=== PATIENT | female | born 1935 | race Caucasian/White ===

== ENCOUNTER 2021-06-02 09:43 | Inpatient (IN) ==
--- NOTE | 2021-06-02 10:15 | Emergency Department Note ---
HPI General Chief complaint: Fall Stated complaint: Fall, left femur pain Time Seen by Provider: 06/02/21 10:05 Source: EMS Mode of arrival: EMS Limitations: no limitations History of Present Illness HPI Narrative: Narrative: 86 yo F w/ h/o HTN, Zoster, p/w L hip and thigh pain s/p fall. She reports that she is on gabapentin for her zoster, which makes her dizzy. She stood up from the bed, and felt dizzy c/w previous episodes that she attributes to gabapentin, and then lost her balance, falling to the ground. She had left thigh pain which was constant, w/ no clear alleviating/aggravating factors, and has improved s/p fentanyl given by EMS en route. She reports she she is tired and is having difficulty remembering her exact symptoms. She denies any head injury, headache, numbness, tingling, weakness. Related Data Home Medications Medication Instructions Recorded Confirmed amlodipine 5 mg tablet ea PO 05/23/21 05/30/21 aspirin 81 mg tablet,delayed 81 mg PO QDAY 05/23/21 05/30/21 release (Adult Low Dose Aspirin) azathioprine 50 mg tablet ea PO 05/23/21 05/30/21 duloxetine 30 mg capsule,delayed 30 mg PO cap 05/23/21 05/30/21 release escitalopram oxalate 5 mg tablet 5 mg PO tab 05/23/21 05/30/21 fenofibrate micronized 200 mg cap PO 05/23/21 05/30/21 capsule gabapentin 100 mg capsule 100 mg PO TID cap 05/23/21 05/30/21 gabapentin 300 mg capsule ea PO 05/23/21 05/30/21 lidocaine 5 % topical ointment 1 applic TOPICAL g 05/23/21 05/30/21 lisinopril 40 mg tablet ea PO 05/23/21 05/30/21 metoprolol succinate 25 mg ea PO 05/23/21 05/30/21 tablet,extended release 24 hr rosuvastatin 5 mg tablet tab PO 05/23/21 05/30/21 valacyclovir 1 gram tablet 1,000 mg PO tab 05/23/21 05/30/21 Allergies Allergy/AdvReac Type Severity Reaction Status Date / Time Cyclobenzaprine Allergy Unknown Verified 06/02/21 09:44 [From Flexeril] Review of Systems ROS ROS Narrative: Narrative: All systems ED: reviewed and negative except as stated. PFSH Narrative Patient History Narrative: Narrative: Medical/Surgical/Family History All Active Problems (Updated 06/02/21 @ 18:43 by [place] MD) Acute pain of left hip (Acute) Crohn's disease (Acute) Closed fracture of left hip (Acute) Easy bruising (Chronic) Difficulty in walking (Chronic) Heartburn (Chronic) Visual changes (Chronic) Weight loss (Chronic) Depression (Chronic) Heart disease (Chronic) Glaucoma (Chronic) Zoster without complications (Acute) Benign nevus (Chronic) Seborrheic dermatitis (Chronic) Pain in left knee (Chronic) Thoracic back pain (Chronic) Osteoarthritis (Chronic) Osteopenia (Chronic) Vitamin D deficiency (Chronic) Dumping syndrome (Chronic) Crohn's disease (Chronic) Anxiety (Chronic) Hyperlipemia (Chronic) Palpitations (Chronic) Disorder of bone density and structure, unspecified (Chronic) Skin cancer (Chronic) Angioma (Chronic) Solar elastosis (Chronic) Seborrheic keratoses (Chronic) Hypertension (Chronic) Shingles (Chronic) Flank pain (Chronic) Postherpetic neuralgia (Chronic) Medical History Angioma Anxiety Benign nevus Crohn's disease Depression Difficulty in walking Disorder of bone density and structure, unspecified Dumping syndrome Easy bruising Flank pain Glaucoma Heart disease Heartburn Hyperlipemia Hypertension Osteoarthritis Osteopenia Pain in left knee Palpitations Postherpetic neuralgia Seborrheic dermatitis Seborrheic keratoses Shingles Skin cancer Solar elastosis Thoracic back pain Visual changes Vitamin D deficiency Weight loss Zoster without complications Surgical History History of appendectomy History of cholecystectomy History of coronary artery stent placement History of hysterectomy Family History Brother Lung cancer Unknown Diabetes Hypercholesterolemia Hypothyroidism Mother Arthritis Hypertension Father Heart disease Social History Smoking Status: Never smoker Alcohol Intake Frequency: does not drink Substance Use: does not use Exam Narrative Narrative: Narrative: General Limitations: no limitations General appearance: Present alert, in no apparent distress and other (fatigued) Head Head: Present atraumatic and normocephalic ENT ENT: Present normal oropharynx and mucous membranes moist Chest Chest: Present normal inspection and symmetric chest wall rise Respiratory Respiratory: Present normal lung sounds bilaterally and stridor; Absent respiratory distress, rales/crackles or wheezes Cardiovascular Cardiovascular: Present regular rate, normal rhythm, +S1, +S2 and other (2+ B/L DP, PT, radial pulses); Absent systolic murmur or diastolic murmur Adbominal Abdominal: Present soft and normal bowel sounds; Absent distention or tenderness Extremities Extremities: Present other (LLE foreshortened, externally rotated, TTP over L hip, pain w/ external rotation); Absent pedal edema Neurological Neurological: Present alert and oriented X3 Psychiatric Psychiatric: Present normal affect Skin Skin: Present warm (WNL) and dry Course Vital Signs Vital signs: Vital Signs Temperature 97.8 F 06/02/21 09:44 Pulse Rate 58 L 06/02/21 09:44 Respiratory Rate 16 06/02/21 09:44 Blood Pressure 106/98 06/02/21 09:44 Pulse Oximetry (%) 98 06/02/21 09:44 Temperature 97.8 F 06/02/21 09:44 Pulse Rate 57 L 06/02/21 18:29 Respiratory Rate 16 06/02/21 09:44 Blood Pressure 131/86 06/02/21 17:16 Pulse Oximetry (%) 96 06/02/21 18:29 MDM MDM Narrative Medical decision making narrative: Narrative: 86 yo F w/ h/o HTN, on ASA, p/w L hip pain s/p GLF DDX - Hip Fx, dislocation, neurovascular injury, closed head injury, spinal injury, underlying medical illness Pt presented clinically stable, in NAD. Her Hx and PE were suggestive of a L hip Fx. XR showed a likely impacted Fx to me, but radiology was concerned for some artifact and recommended CT. This did indeed show a Fx. There was no neurovascular injury on exam. Given that she was fairly drowsy s/p fentanyl I ordered CT head and C spine, and these were negative. There was no evidence of an acute medical illness to cause the fall such as syncope, metabolic/electrolyte d/o, etc and further w/u for this was not indicated. I controlled her pain w/ morphine, toradol, and a fascia iliaca block and she was stable for admission to the hospitalist w/ orthopedic surgery consulted and planning operative intervention. Lab Data Result diagrams: 06/02/21 12:18 06/02/21 12:07 Labs: Lab Results 06/02/21 06/02/21 06/02/21 Range/Units 12:07 12:18 12:30 WBC 11.1 H (4.5-11.0) K/mcL RBC 4.07 (3.59-5.38) M/mcL Hgb 13.3 (11.2-15.7) g/dL Hct 40.1 (34.1-44.9) % MCV 98.5 (80.0-100.0) fL MCH 32.7 (26.0-34.0) pg MCHC 33.2 (31.0-36.0) g/dL RDW 14.6 H (11.5-14.5) % Plt Count 234 (140-440) K/mcL MPV 9.3 (7.4-10.4) fL Neut % (Auto) 86.9 H (38.0-78.0) % Lymph % (Auto) 5.2 L (15.5-49.0) % [place] % (Auto) 7.8 (1.0-12.0) % Eos % (Auto) 0 (0.0-7.0) % Baso % (Auto) 0.1 (0.0-2.0) % Lymph # (Auto) 0.58 L (1.50-4.80) K/mcL [place] # (Auto) 0.87 (0.10-0.90) K/mcL Eos # (Auto) 0 (0.00-0.70) K/mcL Baso # (Auto) 0.01 (0.00-0.30) K/mcL Absolute Neutrophils 9.65 H (1.80-8.00) K/mcL PT 13.2 (11.9-14.5) sec INR 1.0 (0.9-1.1) Sodium 135 (133-145) mmol/L Potassium 5.1 (3.3-5.1) mmol/L Chloride 104 (96-108) mmol/L Carbon Dioxide 20 L (22-30) mmol/L Anion Gap 11.0 (8.0-16.0) BUN 25 H (8-23) mg/dL Creatinine 0.8 (0.6-1.1) mg/dL GFR Calculation 68 Glucose 83 (70-105) mg/dL Calcium 8.9 (8.6-10.4) mg/dL Total Bilirubin 0.5 (0.1-1.0) mg/dL AST 18 (<32) U/L ALT 10 (<40) U/L Alkaline Phosphatase 42 (39-117) U/L Total Protein 5.9 (5.9-8.4) gm/dL Albumin 3.4 (3.2-5.2) gm/dL Globulin 2.5 (2.2-3.7) gm/dL Albumin/Globulin Ratio 1.4 (1.0-2.3) ED POC Tests ED POC Tests: SUNG - SARS Antigen Negative EKG Data EKG #1: EKG attestation: Yes I reviewed and interpreted this EKG. and Yes There are no EKG findings of acute coronary syndrome EKG results narrative: Sinus rate of 57, normal HI, QRS, QT/QTc intervals, no STEMI, no previous for comparison. EKG shows normal: sinus rhythm Procedures Nerve Block Nerve Block 1: Consent Obtained: verbal consent Local Anesthetic: bupivacaine 0.25% Amount of anesthesia used (mL): 20 Side: left Nerve Blocks: femoral Procedure Successful: Yes Patient Tolerated Procedure: well Complications: none Additional Comments: I obtained verbal consent after reviewing R/B/A. I identified the femoral nerve using ultrasound prior to procedure. I then prepped w/ a chloraprep and used sterile gloves through the procedure. With a sterile cover on the ultrasound, I introduced a 20 guage spinal needle just lateral to the femoral nerve. I then injected saline and noted fluid surrounding the nerve. Keeping the needle in place, I removed the syringe of saline and attached a 20ml syringe filled w/ 0.25% bupivicaine. Prior to injecting I aspirated to ensure that there was no intravascular placement. I repeated this every 5ml. I injected the 20ml w/o issue. It should be noted that I calculated a maximum dose of 39ml of 0.25% bupivacaine prior to procedure. Discharge Plan Patient/Caregiver Discharge Instructions Pt seen by PARTY HOST/PA only: No Clinical Impression: Acute pain of left hip, Crohn's disease, Closed fracture of left hip Patient Disposition: Xfer As Inpt ([facility]) Condition: Good Follow up with: Hannah Oleary ARNP [Primary Care Provider] - Prescriptions: No Action duloxetine 30 mg capsule,delayed release(DR/EC) 30 mg PO 0RF gabapentin 300 mg capsule PO 0RF Label Comments: take 1 capsule by mouth three times a day NEEDED FOR PAIN lisinopril 40 mg tablet PO 0RF Label Comments: take 1 tablet by mouth once daily metoprolol succinate 25 mg tablet extended release 24 hr PO 0RF Label Comments: take 1 tablet by mouth twice a day (NEEDS TO BE SEEN) escitalopram oxalate 5 mg tablet 5 mg PO 0RF rosuvastatin 5 mg tablet PO 0RF fenofibrate micronized 200 mg capsule PO 0RF amlodipine 5 mg tablet PO 0RF Label Comments: take 1 tablet by mouth once daily gabapentin 100 mg capsule 100 mg PO TID 0RF Label Comments: take 1 capsule by mouth three times a day lidocaine 5 % ointment 1 applic topical 0RF Label Comments: APPLY LIBERALLY TO AFECTED AREA EVERY 4 HOURS IF NEEDED FOR PAIN valacyclovir 1 gram tablet 1,000 mg PO 0RF Label Comments: take 1 tablet by mouth three times a day azathioprine 50 mg tablet PO 0RF Label Comments: take 1 tablet by mouth twice a day after meals aspirin [Adult Low Dose Aspirin] 81 mg tablet,delayed release (DR/EC) 81 mg PO QDAY 0RF
--- NOTE | 2021-06-02 10:57 | XRay Report ---
INDICATION: Hip Fracture TECHNIQUE: AP supine chest x-ray COMPARISON: Previous chest x-rays dated 10/16/2017, 06/16/2016, 02/09/2016 FINDINGS: Lungs:Lungs are suboptimally evaluated, probably due to shallow inspiration and supine position. Follow-up PA and lateral chest x-ray recommended when clinically appropriate. No focal pulmonary parenchymal consolidation or mass Heart, vascular:No significant cardiomegaly. Pulmonary vascularity is normal. No pulmonary edema or pulmonary congestion. There is a probable coronary artery stent in place Mediastinum, jose:No mediastinal widening. No hilar mass Pleura:No pleural fluid. No pleural-based mass or calcification Skeletal:Negative. IMPRESSION: 1. Suboptimal evaluation as above. Recommend follow-up PA and lateral chest x-ray when clinically appropriate 2. No acute abnormality Interpreted and Authenticated by: Rashaun Knowles 06/02/21
--- NOTE | 2021-06-02 11:05 | Cat Scan Report ---
INDICATION: fall COMPARISON: None. TECHNIQUE: Axial noncontrast-enhanced images through the brain. Sagittally and coronally reformatted images. FINDINGS: Cerebral hemispheres:Negative. No acute intra-axial abnormality. No intra-axial hematoma. No localized mass effect. Probable left choroidal fissure cyst. There is white matter abnormality consistent with small vessel ischemic change.There is cerebral atrophy with enlarged superficial subarachnoid spaces and ventricles. Brainstem and cerebellum:No intra-axial abnormality Extra-axial:No acute hemorrhage. No subdural or epidural hematoma. No subarachnoid hemorrhage. Basilar cisterns are normal Calvarial:No calvarial fracture. No lytic lesion Temporal bones are negative. No destructive lesions Soft tissue, orbits, sinuses:Mild inflammatory disease in the sphenoid air cells. IMPRESSION: 1. No acute abnormality. No intracranial hemorrhage 2. Cerebral atrophy and mild white matter abnormality The exam was performed using radiation dose optimization techniques including, but not limited to, automated exposure control, adjustment of the mA and/or kV according to patient size and use of iterative reconstruction technique. Interpreted and Authenticated by: Rashaun Knowles 06/02/21
--- NOTE | 2021-06-02 11:09 | Cat Scan Report ---
INDICATION: fall COMPARISON: None. TECHNIQUE: Axial thin section images through the cervical spine. Sagittally and coronally reformatted images. The exam was performed using radiation dose optimization techniques including, but not limited to, automated exposure control, adjustment of the mA and/or kV according to patient size and use of iterative reconstruction technique. FINDINGS: Vertebral bodies, spinous processes:No vertebral body or spinous process fracture. No acute abnormality. Alignment is anatomic without anterolisthesis Normal odontoid process. No fracture. Occipital condyles and C1 are negative. No atlantoaxial subluxation. Facets:No perched or locked facet. No facet complex fracture. Disc spaces:Moderate degenerative disc narrowing at C4-5 and C5-6 Temporal bones:Negative. No basilar skull fracture Cervical soft tissues:Negative. No prevertebral soft tissue swelling. No focal soft tissue mass or acute abnormality Lung apices:Groundglass infiltrate in the left upper lobe. This is nonspecific but correlation with covid test is recommended. There is an enlarged left thyroid lobe. A discrete nodule was not identified. Follow-up ultrasound recommended IMPRESSION: 1. No cervical spine fracture 2. Degenerative disc disease 3. Groundglass infiltrate in the left upper lobe. Correlation with patient's covid test recommended to exclude covid pneumonia 4. Asymmetric enlargement of the left thyroid lobe. Thyroid ultrasound recommended Interpreted and Authenticated by: Rashaun Knowles 06/02/21
[2021-06-02] MEDS ORDERED: KETOROLAC 15 MG/ML VIAL IV ONE (11:13)
--- NOTE | 2021-06-02 11:13 | XRay Report ---
INDICATION: L hip pain s/p fall TECHNIQUE: AP pelvis. AP and bilateral lateral hips COMPARISON: None. FINDINGS: Negative pelvis. No pelvic fracture. No lytic lesion. Sacrum is negative. Right hip is negative. No right hip fracture. Joint space is mildly narrowed Left hip is internally rotated in the left femoral neck is foreshortened and not well visualized. Definite fracture is not identified but if fracture is suspected clinically CT scan is recommended. IMPRESSION: 1. Suboptimal visualization of the left femoral neck. Left hip fracture is not excluded 2. Otherwise negative Interpreted and Authenticated by: Rashaun Knowles 06/02/21
[2021-06-02] MEDS ORDERED: KETOROLAC 30 MG/ML VIAL IV ONE (11:18)
--- NOTE | 2021-06-02 11:48 | Cat Scan Report ---
INDICATION: L hip pain, likely Fx TECHNIQUE: Axial images through the pelvis and hips. Sagittal and coronal reformatted images COMPARISON: Plain film examination dated 06/02/2021 FINDINGS: Displaced left subcapital hip fracture with anterior displacement and angulation of the femoral neck relative to the head. Left acetabulum is normal. No pelvic fracture. Right hip is negative IMPRESSION: Displaced and angulated subcapital left hip fracture Interpreted and Authenticated by: Rashaun Knowles 06/02/21
[2021-06-02] MEDS ORDERED: BUPIVACAINE 0.25% 50 ML VIAL IJ ONE (13:12)
[2021-06-02 13:17] LABS: Basophils # (Auto) 0.01 K/mcL (0.00-0.30); Basophils % (Auto) 0.1 % (0.0-2.0); Eosinophils # (Auto) 0 K/mcL (0.00-0.70); Eosinophils % (Auto) 0 % (0.0-7.0); Hematocrit 40.1 % (34.1-44.9); Hemoglobin 13.3 g/dL (11.2-15.7); Lymphocytes # (Auto) 0.58 K/mcL (1.50-4.80); Lymphocytes % (Auto) 5.2 % (15.5-49.0); Mean Cell Volume 98.5 fL (80.0-100.0); Mean Corpuscular HGB Conc 33.2 g/dL (31.0-36.0); Mean Platelet Volume 9.3 fL (7.4-10.4); Monocytes # (Auto) 0.87 K/mcL (0.10-0.90); Monocytes % (Auto) 7.8 % (1.0-12.0); Neutrophils % (Auto) 86.9 % (38.0-78.0); Platelet Count 234 K/mcL (140-440); RBC 4.07 M/mcL (3.59-5.38); Red Cell Distribution Width 14.6 % (11.5-14.5); WBC 11.1 K/mcL (4.5-11.0)
[2021-06-02 13:25] LABS: Prothrombin Time 13.2 sec (11.9-14.5)
[2021-06-02 13:27] LABS: ALT/SGPT 10 U/L (<40); AST/SGOT 18 U/L (<32); Albumin 3.4 gm/dL (3.2-5.2); Albumin/Globulin Ratio 1.4 (1.0-2.3); Alkaline Phosphatase 42 U/L (39-117); Bilirubin,Total 0.5 mg/dL (0.1-1.0); Blood Urea Nitrogen 25 mg/dL (8-23); Calcium 8.9 mg/dL (8.6-10.4); Carbon Dioxide 20 mmol/L (22-30); Chloride 104 mmol/L (96-108); Globulin 2.5 gm/dL (2.2-3.7); Glomerular Filtration Rate 68; Glucose 83 mg/dL (70-105)
[2021-06-02] MEDS ORDERED: morphine 4 MG/ML VIAL IV ONE (13:44)
[2021-06-02] MEDS ORDERED: ONDANSETRON 4 MG/2 ML VIAL IV ONE (13:44)
--- NOTE | 2021-06-02 17:16 | Internal Med History&Physical ---
HPI History of Present Illness Patient information: Note initiated : 06/02/21 at 5:11 pm Service Date, if different from initiated Date: [] Patient: Katheryn Hendrickson a 86 y/o F admitted on for Fall, left femur pain. Chief Complaint: [] History of present illness: Ms. Hendrickson is a 86 year old F Patient fell onto left hip resulting in fracture. She has shingles left back area. She is on gabapentin. Patient states the medication has made her dizzy as time which caused her to fall today. Vicki was contacted for orthopedics. Patient denies chest pain shortness of breath did not hit her head. Review of Systems: Positives as above. Denies headache/fever/chills/nausea/vomiting/chest or abdominal pain/cough/dyspnea/diarrhea. Remaining 10 point review of system reviewed negative PFSH PFSH All Active Problems Easy bruising (Chronic) Difficulty in walking (Chronic) Heartburn (Chronic) Visual changes (Chronic) Weight loss (Chronic) Depression (Chronic) Heart disease (Chronic) Glaucoma (Chronic) Zoster without complications (Acute) Benign nevus (Chronic) Seborrheic dermatitis (Chronic) Pain in left knee (Chronic) Thoracic back pain (Chronic) Osteoarthritis (Chronic) Osteopenia (Chronic) Vitamin D deficiency (Chronic) Dumping syndrome (Chronic) Crohn's disease (Chronic) Anxiety (Chronic) Hyperlipemia (Chronic) Palpitations (Chronic) Disorder of bone density and structure, unspecified (Chronic) Skin cancer (Chronic) Angioma (Chronic) Solar elastosis (Chronic) Seborrheic keratoses (Chronic) Hypertension (Chronic) Shingles (Chronic) Flank pain (Chronic) Postherpetic neuralgia (Chronic) Medical History Angioma Anxiety Benign nevus Crohn's disease Depression Difficulty in walking Disorder of bone density and structure, unspecified Dumping syndrome Easy bruising Flank pain Glaucoma Heart disease Heartburn Hyperlipemia Hypertension Osteoarthritis Osteopenia Pain in left knee Palpitations Postherpetic neuralgia Seborrheic dermatitis Seborrheic keratoses Shingles Skin cancer Solar elastosis Thoracic back pain Visual changes Vitamin D deficiency Weight loss Zoster without complications Surgical History History of appendectomy History of cholecystectomy History of coronary artery stent placement History of hysterectomy Family History Brother Lung cancer Unknown Diabetes Hypercholesterolemia Hypothyroidism Mother Arthritis Hypertension Father Heart disease Social History (Updated 05/24/21 @ 15:44 by Agueda Adams) marital status: education level: college occupational status: retired physical activity: other frequency: 3-4 times per week smoking status: Never smoker alcohol intake frequency: does not drink substance use type: does not use MEDS/ALLERGIES Home Medications and Allergies Home Medications Medication Instructions Recorded Confirmed Type amlodipine 5 mg tablet ea PO 05/23/21 05/30/21 History aspirin 81 mg tablet,delayed 81 mg PO QDAY 05/23/21 05/30/21 History release (Adult Low Dose Aspirin) azathioprine 50 mg tablet ea PO 05/23/21 05/30/21 History duloxetine 30 mg capsule,delayed 30 mg PO cap 05/23/21 05/30/21 History release escitalopram oxalate 5 mg tablet 5 mg PO tab 05/23/21 05/30/21 History fenofibrate micronized 200 mg cap PO 05/23/21 05/30/21 History capsule gabapentin 100 mg capsule 100 mg PO TID cap 05/23/21 05/30/21 History gabapentin 300 mg capsule ea PO 05/23/21 05/30/21 History lidocaine 5 % topical ointment 1 applic TOPICAL g 05/23/21 05/30/21 History lisinopril 40 mg tablet ea PO 05/23/21 05/30/21 History metoprolol succinate 25 mg ea PO 05/23/21 05/30/21 History tablet,extended release 24 hr rosuvastatin 5 mg tablet tab PO 05/23/21 05/30/21 History valacyclovir 1 gram tablet 1,000 mg PO tab 05/23/21 05/30/21 History Allergies Allergy/AdvReac Type Severity Reaction Status Date / Time Cyclobenzaprine Allergy Unknown Verified 06/02/21 09:44 [From Flexeril] EXAM Constitutional Vitals: Temp Pulse Resp BP Pulse Ox 97.8 F 57 L 16 139/70 96 06/02/21 09:44 06/02/21 16:46 06/02/21 09:44 06/02/21 16:46 06/02/21 16:46 Exam: General: Alert, Awake, No acute Distress Eyes/N/T: EOMI, PERRL, dry MM Head/Neck: neck supple, normocephalic atraumatic CV: RRR, No murmurs, normal s1/s2 Pulm: Clear b/l, no wheezing/rhonchi/rales Abd: soft, nontender, +BS x4 Ext: no clubbing/cyanosis/edema Neuro: Alert, no focal deficits, moves all extremities, CN 2-12 grossly intact, sensations intact b/l upper/lower Skin: warm/dry DATA Data Completed and Pending Labs: Labs from last 24 hours 06/02/21 06/02/21 06/02/21 12:30 12:18 12:07 WBC 11.1 H RBC 4.07 Hgb 13.3 Hct 40.1 MCV 98.5 MCH 32.7 MCHC 33.2 RDW 14.6 H Plt Count 234 MPV 9.3 Neut % (Auto) 86.9 H Lymph % (Auto) 5.2 L [place] % (Auto) 7.8 Eos % (Auto) 0 Baso % (Auto) 0.1 Lymph # (Auto) 0.58 L [place] # (Auto) 0.87 Eos # (Auto) 0 Baso # (Auto) 0.01 Absolute Neutrophils 9.65 H PT 13.2 INR 1.0 Sodium 135 Potassium 5.1 Chloride 104 Carbon Dioxide 20 L Anion Gap 11.0 BUN 25 H Creatinine 0.8 GFR Calculation 68 Glucose 83 Calcium 8.9 Total Bilirubin 0.5 AST 18 ALT 10 Alkaline Phosphatase 42 Total Protein 5.9 Albumin 3.4 Globulin 2.5 Albumin/Globulin Ratio 1.4 A/P Narrative A/P Narrative: A: *Left hip fracture: *recent Zoster infection to Left back (thoracic): recently started on gabapentin, increased cymbalta, lidoderm *h/o CAD w/stent: *HTN/HLD: *Crohn's: On azathioprine *Anxiety/depression: * P: -Dr. Cohen for orthopedic surgery -Hold aspirin until surgery -pt/ot -cont norvasc/ACEI, hold BB for mild BB -Reconcile home medications -ppx: SCD, post op per ortho DNR Time Spent With Patient Time: Total time spent is greater than 50% in coordination of care (as documented) at patient's floor/unit and/or counseling patient:
[2021-06-02] MEDS ORDERED: ceFAZolin 2 GM in DEXTROSE 5% IN WATER 50 ML IV SCH (19:30)
[2021-06-02] MEDS ORDERED: ceFAZolin 1 GM VIAL ONE (19:33)
--- NOTE | 2021-06-02 19:38 | Orthopedic History & Physical ---
HPI History of Present Illness Patient information: Note initiated : 06/02/21 at 7:29 pm Service Date, if different from initiated Date: [] Patient: Katheryn Hendrickson 86 y/o F admitted on for Fall, left femur pain. Chief Complaint: [left hip pain s/p fall] History of present illness: 86 yo F w/ h/o HTN, Zoster, p/w L hip and thigh pain s/p fall. She reports that she is on gabapentin for her zoster, which makes her dizzy. She stood up from the bed, and felt dizzy c/w previous episodes that she attributes to gabapentin, and then lost her balance, falling to the ground. Sh ewas subsequently transported to [facility] where workup revealed LEFT subcapital femur fracture. She denies any head injury, headache, numbness, tingling, weakness. Dr. Cohen ortho surgeon was consulted for treatment. Review of Systems All systems: reviewed and no additional remarkable complaints except as stated PFSH PFSH All Active Problems Acute pain of left hip (Acute) Crohn's disease (Acute) Closed fracture of left hip (Acute) Easy bruising (Chronic) Difficulty in walking (Chronic) Heartburn (Chronic) Visual changes (Chronic) Weight loss (Chronic) Depression (Chronic) Heart disease (Chronic) Glaucoma (Chronic) Zoster without complications (Acute) Benign nevus (Chronic) Seborrheic dermatitis (Chronic) Pain in left knee (Chronic) Thoracic back pain (Chronic) Osteoarthritis (Chronic) Osteopenia (Chronic) Vitamin D deficiency (Chronic) Dumping syndrome (Chronic) Crohn's disease (Chronic) Anxiety (Chronic) Hyperlipemia (Chronic) Palpitations (Chronic) Disorder of bone density and structure, unspecified (Chronic) Skin cancer (Chronic) Angioma (Chronic) Solar elastosis (Chronic) Seborrheic keratoses (Chronic) Hypertension (Chronic) Shingles (Chronic) Flank pain (Chronic) Postherpetic neuralgia (Chronic) Medical History Angioma Anxiety Benign nevus Crohn's disease Depression Difficulty in walking Disorder of bone density and structure, unspecified Dumping syndrome Easy bruising Flank pain Glaucoma Heart disease Heartburn Hyperlipemia Hypertension Osteoarthritis Osteopenia Pain in left knee Palpitations Postherpetic neuralgia Seborrheic dermatitis Seborrheic keratoses Shingles Skin cancer Solar elastosis Thoracic back pain Visual changes Vitamin D deficiency Weight loss Zoster without complications Surgical History History of appendectomy History of cholecystectomy History of coronary artery stent placement History of hysterectomy Family History Brother Lung cancer Unknown Diabetes Hypercholesterolemia Hypothyroidism Mother Arthritis Hypertension Father Heart disease Social History marital status: education level: college occupational status: retired physical activity: other frequency: 3-4 times per week smoking status: Never smoker alcohol intake frequency: does not drink substance use type: does not use MEDS/ALLERGIES Home Medications and Allergies Home Medications Medication Instructions Recorded Confirmed Type amlodipine 5 mg tablet ea PO 05/23/21 05/30/21 History aspirin 81 mg tablet,delayed 81 mg PO QDAY 05/23/21 05/30/21 History release (Adult Low Dose Aspirin) azathioprine 50 mg tablet ea PO 05/23/21 05/30/21 History duloxetine 30 mg capsule,delayed 30 mg PO cap 05/23/21 05/30/21 History release escitalopram oxalate 5 mg tablet 5 mg PO tab 05/23/21 05/30/21 History fenofibrate micronized 200 mg cap PO 05/23/21 05/30/21 History capsule gabapentin 100 mg capsule 100 mg PO TID cap 05/23/21 05/30/21 History gabapentin 300 mg capsule ea PO 05/23/21 05/30/21 History lidocaine 5 % topical ointment 1 applic TOPICAL g 05/23/21 05/30/21 History lisinopril 40 mg tablet ea PO 05/23/21 05/30/21 History metoprolol succinate 25 mg ea PO 05/23/21 05/30/21 History tablet,extended release 24 hr rosuvastatin 5 mg tablet tab PO 05/23/21 05/30/21 History valacyclovir 1 gram tablet 1,000 mg PO tab 05/23/21 05/30/21 History Allergies Allergy/AdvReac Type Severity Reaction Status Date / Time Cyclobenzaprine Allergy Unknown Verified 06/02/21 09:44 [From Flexeril] Physical Examination Narrative Narrative: Narrative: Results Labs Result Diagrams: 06/02/21 12:18 06/02/21 12:07 Labs: Abnormal lab results 06/02/21 06/02/21 Range/Units 12:07 12:18 WBC 11.1 H (4.5-11.0) K/mcL RDW 14.6 H (11.5-14.5) % Neut % (Auto) 86.9 H (38.0-78.0) % Lymph % (Auto) 5.2 L (15.5-49.0) % Lymph # (Auto) 0.58 L (1.50-4.80) K/mcL Absolute Neutrophils 9.65 H (1.80-8.00) K/mcL Carbon Dioxide 20 L (22-30) mmol/L BUN 25 H (8-23) mg/dL H & H 06/02/21 Range/Units 12:18 Hgb 13.3 (11.2-15.7) g/dL Hct 40.1 (34.1-44.9) % Coagulation 06/02/21 Range/Units 12:30 INR 1.0 (0.9-1.1) All other labs normal. A/P Narrative A/P Narrative: On exam pt is at bedrest in no acute distress, heart is normal rhythm lungs are equal and clear bilaterally. She is able to move all four extremities which are warm, well perfused and neuro intact. At the Left hip and pelvis there is tenderness to palpation and with any ROM. Options were presented to the patient including surgical and non surgical. surgical option consisting of left hip hemiarthoplasty. At this time patient is interested in surgery. Plan is for left hip hemiarthroplasty to take place semi urgently with Vicki Alanis surgeon and Amos CURIEL. Surgical risks were explained to the patient including but not limited to: pain, bleeding, infection, need for further surgery, stroke, heart attack, and . patient understands these risks and wishes to proceed with surgery Time Spent With Patient Time: Total time spent is greater than 50% in coordination of care (as documented) at patient's floor/unit and/or counseling patient:
[2021-06-02] MEDS ORDERED: ONDANSETRON 4 MG/2 ML VIAL ONE (19:42)
[2021-06-02] MEDS ORDERED: KETAMINE 50 MG/ML Syringe (ANEST) IV ONE (19:42)
[2021-06-02] MEDS ORDERED: TRANEXAMIC ACID 1,000 MG/10 ML VIAL ONE (19:42)
[2021-06-02] MEDS ORDERED: LIDOCAINE HCL/PF 100 MG/5 ML SYRINGE IV ONE (19:42)
[2021-06-02] MEDS ORDERED: PHENYLephrine 1 MG/10 ML SYRINGE (ANEST) ONE (19:42)
[2021-06-02] MEDS ORDERED: fentaNYL 100 MCG/2 ML VIAL IV ONE (19:42)
[2021-06-02] MEDS ORDERED: DEXAMETHASONE 10 MG/ML VIAL ONE (19:42)
[2021-06-02] MEDS ORDERED: PROPOFOL 200 MG/20 ML VIAL IV ONE (19:42)
[2021-06-02] MEDS ORDERED: MAGNESIUM SULFATE 2 GM/50 ML BAG IV ONE (19:42)
[2021-06-02] MEDS ORDERED: GLYCOPYRROLATE 0.2 MG/ML VIAL IV ONE (19:42)
[2021-06-02] MEDS ORDERED: GENTAMICIN SULFATE 800 MG/20 ML VIAL IR ONE (20:54)
--- NOTE | 2021-06-02 21:18 | General Surgery Procedure Note ---
Date of procedure: Note initiated : 06/02/21 at 9:17 pm Service Date, if different from initiated Date: [] Pre-op diagnosis: left hip femoral neck fracture Post-op diagnosis: same Procedure: left hip hemiarthroplasty Anesthesia: DAQUAN Surgeon: Rashaun Cohen Leasing Consultant: Marco Antonio Ambriz Estimated blood loss: 150 Pathology: none sent Condition: stable Disposition: PACU
--- NOTE | 2021-06-02 21:18 | Discharge Plan ---
DC Instructions-General Patient Instructions Dressing Care: May shower in 2 days Discharge Plan Patient/Caregiver Discharge Instructions Activity: ambulate only with your walker and as per physical therapy Diet: Regular Diet Prescriptions: New aspirin [Aspirin Low Dose] 81 mg Tablet,Delayed Release (Dr/Ec) 81 mg PO BID Qty: 30 0RF hydrocodone-acetaminophen 10-325 mg Tablet 1 - 2 tab PO Q4H PRN (Reason: Pain) Qty: 60 0RF No Action duloxetine 30 mg capsule,delayed release(DR/EC) 30 mg PO 0RF gabapentin 300 mg capsule PO 0RF Label Comments: take 1 capsule by mouth three times a day NEEDED FOR PAIN lisinopril 40 mg tablet PO 0RF Label Comments: take 1 tablet by mouth once daily metoprolol succinate 25 mg tablet extended release 24 hr PO 0RF Label Comments: take 1 tablet by mouth twice a day (NEEDS TO BE SEEN) escitalopram oxalate 5 mg tablet 5 mg PO 0RF rosuvastatin 5 mg tablet PO 0RF fenofibrate micronized 200 mg capsule PO 0RF amlodipine 5 mg tablet PO 0RF Label Comments: take 1 tablet by mouth once daily gabapentin 100 mg capsule 100 mg PO TID 0RF Label Comments: take 1 capsule by mouth three times a day lidocaine 5 % ointment 1 applic topical 0RF Label Comments: APPLY LIBERALLY TO AFECTED AREA EVERY 4 HOURS IF NEEDED FOR PAIN valacyclovir 1 gram tablet 1,000 mg PO 0RF Label Comments: take 1 tablet by mouth three times a day azathioprine 50 mg tablet PO 0RF Label Comments: take 1 tablet by mouth twice a day after meals aspirin [Adult Low Dose Aspirin] 81 mg tablet,delayed release (DR/EC) 81 mg PO QDAY 0RF Other Ambulatory Orders: OT Discharge Order (Routine) Location: None Selected Ordered By: Rashaun Cohen Physical Therapy DC - General (Routine) Location: None Selected Ordered By: Rashaun Cohen Follow Up Plan Follow up with: Rashaun Cohen MD [Physician] - Hannah Oleary ARNP [Primary Care Provider] - Patient Disposition: Xfer SNF Prognosis: Good Rehab Potential: Good I certify that the patient requires SNF services: Yes Overall status at discharge: patient is progressing back to baseline Discharge Orders: Discharge Order (Routine); Ordered 06/04/21 Ordered By: Rashaun Cohen
[2021-06-02] MEDS ORDERED: BISACODYL 10 MG SUPP.RECT PR PRN (21:19)
[2021-06-02] MEDS ORDERED: ONDANSETRON 4 MG ODT TABLET SL PRN (21:19)
[2021-06-02] MEDS ORDERED: POLYETHYLENE GLYCOL 3350 17 GM PACKET PO PRN ×2 (21:19→22:26)
[2021-06-02] MEDS ORDERED: BENZOCAINE/MENTHOL 1 LOZENGE PO PRN ×2 (21:19→21:37)
[2021-06-02] MEDS ORDERED: MAGNESIUM HYDROXIDE 30 ML ORAL.SUSP PO PRN (21:19)
[2021-06-02] MEDS ORDERED: morphine 4 MG/ML VIAL IV PRN ×2 (21:19→22:26)
[2021-06-02] MEDS ORDERED: FLEETS ADULT ENEMA PR PRN (21:19)
[2021-06-02] MEDS ORDERED: FLUMAZENIL 0.1 MG/ML ML IV PRN (21:37)
[2021-06-02] MEDS ORDERED: NALOXONE HCL 0.4 MG/ML VIAL IV PRN (21:37)
[2021-06-02] MEDS ORDERED: METOPROLOL TARTRATE 5 MG/5 ML VIAL IV PRN (21:37)
[2021-06-02] MEDS ORDERED: fentaNYL 100 MCG/2 ML VIAL IV PRN (21:37)
[2021-06-02] MEDS ORDERED: METHOCARBAMOL 1,000 MG/10 ML VIAL IV PRN (21:37)
[2021-06-02] MEDS ORDERED: LABETALOL 5 MG/ML ML IV PRN (21:37)
[2021-06-02] MEDS ORDERED: ACETAMINOPHEN 1,000 MG/100 ML BAG IV ONE (21:37)
[2021-06-02] MEDS ORDERED: LACTATED RINGERS 250 ML IV PRN (21:37)
[2021-06-02] MEDS ORDERED: IPRATROPIUM/ALBUTEROL 3 ML AMPUL.NEB NEB PRN ×2 (21:37→22:26)
[2021-06-02] MEDS ORDERED: ONDANSETRON 4 MG/2 ML VIAL IV PRN ×2 (21:37→22:26)
[2021-06-02] MEDS ORDERED: LACTATED RINGERS 1,000 ML IV SCH (21:45)
[2021-06-02] MEDS ORDERED: ACETAMINOPHEN 750 MG/75 ML BAG IV ONE (22:00)
[2021-06-02] MEDS ORDERED: HYDROcodone/APAP 5/325MG TABLET PO PRN (22:26)
[2021-06-02] MEDS ORDERED: POTASSIUM CHLORIDE 40 MEQ in DEXTROSE 5% IN WATER 500 ML IV PRN (22:26)
[2021-06-02] MEDS ORDERED: MAGNESIUM SULFATE 2 GM/50 ML BAG IV PRN (22:26)
[2021-06-02] MEDS ORDERED: DOCUSATE SODIUM 100 MG CAPSULE PO SCH (22:26)
[2021-06-02] MEDS ORDERED: SENNOSIDES 1 TABLET PO PRN (22:26)
[2021-06-02] MEDS ORDERED: POTASSIUM CHLORIDE 20 MEQ TABLET PO PRN ×2 (22:26)
[2021-06-02] MEDS ORDERED: hydrALAZINE 20 MG/ML VIAL IV PRN (22:26)
[2021-06-02] MEDS: LACTATED RINGERS 1,000 ML IV SCH (22:56)
[2021-06-03] MEDS: 0.9 % SODIUM CHLORIDE 10 ML SYRINGE IV SCH ×4 (01:51→21:33)
[2021-06-03] MEDS: ceFAZolin 1 GM VIAL IV SCH ×2 (04:01→11:54)
--- NOTE | 2021-06-03 06:12 | XRay Report ---
INDICATION: surgery TECHNIQUE: AP pelvis. AP and crosstable lateral left hip COMPARISON: Preoperative CT scan dated 06/02/2021 FINDINGS: Status post left hemihip arthroplasty. Alignment is anatomic. There is postsurgical gas present and there are skin deondre overlying the left hip. Pelvis is negative. No acute fracture. Sacrum is negative IMPRESSION: Status post left hemihip arthroplasty Interpreted and Authenticated by: Rashaun Knowles 06/03/21
[2021-06-03] MEDS: 0.9 % SODIUM CHLORIDE 1,000 ML IV SCH ×2 (06:27→11:29)
[2021-06-03] MEDS: LACTATED RINGERS 1,000 ML IV SCH ×4 (06:32→19:59)
--- NOTE | 2021-06-03 07:12 | Orthopedic Progress Note ---
SUBJECTIVE Subjective Patient information: Note initiated : 06/03/21 at 7:08 am Service Date, if different from initiated Date: [] Patient: Katheryn Hendrickson 86 y/o F admitted on 06/02/21 for Fall, left femur pain. Chief Complaint: [s/p left hemiarthroplasty ] Pertinent ROS: 10 point review performed and is negative except where mentioned Constitutional Vitals: Vital Signs Temp Pulse Resp BP Pulse Ox 97.3 F 68 16 102/59 91 06/03/21 06:56 06/03/21 06:56 06/03/21 06:56 06/03/21 06:56 06/03/21 06:56 Period Temp Pulse Resp BP Sys/Rivera Pulse Ox Last 24 Hr 97.1 F-97.8 F 52-101 9-22 86-165/59-137 91-100 Intake and Output 06/02/21 06/03/21 06/03/21 21:59 05:59 13:59 Intake Total 1550 100 Output Total 475 450 Balance 1075 -350 Weight 109 lb Intake & Output: Intake & Output 06/02/21 06/03/21 06/03/21 21:59 05:59 13:59 Intake Total 1550 100 Output Total 475 450 Balance 1075 -350 Weight 109 lb Intake: IV 50 100 Ancef 2 gm In Dextrose 5% in 50 Water 50 ml @ 100 mls/hr IV PREOP [facility] Rx#:[id number] IV - Manual Only 1500 Output: Urine Catheter Amount 400 450 Estimated Blood Loss 75 Other: Urine Appearance Clear Clear Uretheral (Parsons) Clear Urine Color Bright Yellow Straw Uretheral (Parsons) Bright Yellow OBJ DATA Labs CBC & Chem 7: 06/02/21 12:18 06/02/21 12:07 Labs: Abnormal Lab Results 06/02/21 06/02/21 12:18 12:07 WBC 11.1 H RDW 14.6 H Neut % (Auto) 86.9 H Lymph % (Auto) 5.2 L Lymph # (Auto) 0.58 L Absolute Neutrophils 9.65 H Carbon Dioxide 20 L BUN 25 H Meds: Medications Acetaminophen (Acetaminophen 325 Mg Tablet) 650 mg PO Q6HP PRN; Protocol PRN Reason: Per Pain Protocol/Fever > 101 Hydrocodone Bitart/Acetaminophen (Hydrocodone/Apap 10/325mg Tablet) 0 tab PO Q4HP PRN; Protocol PRN Reason: Per Pain Protocol Hydrocodone Bitart/Acetaminophen (Hydrocodone/Apap 5/325mg Tablet) 1 tab PO Q4HP PRN PRN Reason: PAIN LEVEL 3-6 Albuterol/Ipratropium (Ipratropium/Albuterol 3 Ml Ampul.Neb) 3 ml NEB Q4HP PRN PRN Reason: Shortness Of Breath Aspirin (Aspirin 81 Mg Tab.Chew) 81 mg PO BID [facility] Bisacodyl (Bisacodyl 10 Mg Supp.Rect) 10 mg CO Q2-3DAYS PRN PRN Reason: Constipation Cefazolin Sodium (Cefazolin 1 Gm Vial) 2 gm IV Q8H [facility] Stop: 06/03/21 12:01 Last Admin: 06/03/21 04:01 Dose: 2 gm Documented by: Docusate Sodium (Docusate Sodium 100 Mg Capsule) 100 mg PO BID [facility] Hydralazine HCl (Hydralazine 20 Mg/Ml Vial) 0 mg IV Q2HP PRN PRN Reason: Hypertension Lactated Ringer's (Lactated Ringers) 1,000 mls @ 100 mls/hr IV .Q10H [facility] Last Admin: 06/03/21 06:32 Dose: Not Given Documented by: Potassium Chloride 40 meq/ (Dextrose) 520 mls @ 130 mls/hr IV UD PRN PRN Reason: Potassium < 3 Magnesium Sulfate (Magnesium Sulfate) 2 gm in 50 mls @ 50 mls/hr IV UD PRN PRN Reason: Magnesium </= 1.6 Sodium Chloride (Sodium Chloride 0.9%) 1,000 mls @ 75 mls/hr IV .[id number] [facility] Stop: 06/04/21 01:05 Last Admin: 06/03/21 06:27 Dose: Not Given Documented by: Magnesium Hydroxide (Magnesium Hydroxide 30 Ml Oral.Susp) 30 ml PO BIDP PRN PRN Reason: Constipation Methocarbamol (Methocarbamol 750 Mg Tablet) 750 mg PO Q6HP PRN PRN Reason: Muscle Spasm Morphine Sulfate (Morphine 4 Mg/Ml Vial) 0 mg IV Q1HP PRN; Protocol PRN Reason: Per Pain Protocol Last Admin: 06/03/21 04:01 Dose: 4 mg Documented by: Morphine Sulfate (Morphine 4 Mg/Ml Vial) 0 mg IV Q3HP PRN PRN Reason: Pain Ondansetron HCl (Ondansetron 4 Mg Odt Tablet) 4 mg SL Q4HP PRN; Protocol PRN Reason: Nausea And Vomiting Ondansetron HCl (Ondansetron 4 Mg/2 Ml Vial) 4 mg IV Q4HP PRN PRN Reason: Nausea And Vomiting Polyethylene Glycol (Polyethylene Glycol 3350 17 Gm Packet) 17 gm PO DAILYP PRN PRN Reason: Constipation Potassium Chloride (Potassium Chloride 20 Meq Tablet) 40 meq PO UD PRN PRN Reason: Potssium is 3-3.5 Potassium Chloride (Potassium Chloride 20 Meq Tablet) 40 meq PO UD PRN PRN Reason: Potassium < 3 Senna (Sennosides 1 Tablet) 2 tab PO HS [facility] Sodium Biphosphate/Sodium Phosphate (Fleets Adult Enema) 1 dose CO Q3-4DAYS PRN PRN Reason: Constipation Sodium Chloride (0.9 % Sodium Chloride 10 Ml Syringe) 10 ml IV Q8 [facility] Last Admin: 06/03/21 04:26 Dose: Not Given Documented by: Throat Lozenges (Benzocaine/Menthol 1 Lozenge) 1 lozenge PO PRN PRN PRN Reason: Sore Throat A/P Narrative A/P Narrative: Patient seen and examined this am. awake alert oriented x3 has some expected post-op pain but feels it is well managed on current regimen. Dressing at LLE clean dry and intact. both lower extemities are warm, well perfused and neuro intact. WB as tolerated, PT/OT pain control Plan is for expected discharge to rehab in 1-2 days w/ follow up at [facility] in 10-14 days Time Spent With Patient Time: Total time spent is greater than 50% in coordination of care (as documented) at patient's floor/unit and/or counseling patient:
--- NOTE | 2021-06-03 07:26 | Internal Med Progress Note ---
SUBJECTIVE Subjective Patient information: Note initiated : 06/03/21 at 7:22 am Service Date, if different from initiated Date: [] Patient: Katheryn Hendrickson a 86 y/o F admitted on 06/02/21 for Fall, left femur pain. Chief Complaint: [] Interval history: History of present illness: Ms. Hendrickson is a 86 year old F Patient fell onto left hip resulting in fracture. She has shingles left back area. She is on gabapentin. Patient states the medication has made her dizzy as time which caused her to fall today. Vicki was contacted for orthopedics. Patient denies chest pain shortness of breath did not hit her head. 06/03 Patient had ORIF last night. No overnight events. No new complaints. Postop anemia plus delusional. Review of Systems: denies headache/fever/chills/nausea/vomiting/chest or abdominal pain/cough/dyspnea/diarrhea. Otherwise see above. Constitutional Vitals: Vital Signs Temp Pulse Resp BP Pulse Ox 97.3 F 68 16 102/59 91 06/03/21 06:56 06/03/21 06:56 06/03/21 06:56 06/03/21 06:56 06/03/21 06:56 Period Temp Pulse Resp BP Sys/Rivera Pulse Ox Last 24 Hr 97.1 F-97.8 F 52-101 9-22 86-165/59-137 91-100 Intake and Output 06/02/21 06/03/21 06/03/21 21:59 05:59 13:59 Intake Total 1550 100 Output Total 475 450 Balance 1075 -350 Weight 49.442 kg Intake & Output: Intake & Output 06/02/21 06/03/21 06/03/21 21:59 05:59 13:59 Intake Total 1550 100 Output Total 475 450 Balance 1075 -350 Weight 49.442 kg Intake: IV 50 100 Ancef 2 gm In Dextrose 5% in 50 Water 50 ml @ 100 mls/hr IV PREOP [facility] Rx#:[id number] IV - Manual Only 1500 Output: Urine Catheter Amount 400 450 Estimated Blood Loss 75 Other: Urine Appearance Clear Clear Uretheral (Parsons) Clear Urine Color Bright Yellow Straw Uretheral (Parsons) Bright Yellow Exam: General: Alert, Awake, No acute Distress Eyes/N/T: EOMI, Head/Neck: neck supple, CV: RRR, No murmurs, Pulm: Clear b/l, no wheezing/rhonchi/rales Abd: soft, nontender, +BS x4 Ext: no clubbing/cyanosis/edema Neuro: Alert, no focal deficits, moves all extremities, Skin: warm/dry OBJ DATA Labs CBC & Chem 7: 06/03/21 06:48 06/02/21 12:07 Labs: Abnormal Lab Results 06/02/21 06/02/21 12:18 12:07 WBC 11.1 H RDW 14.6 H Neut % (Auto) 86.9 H Lymph % (Auto) 5.2 L Lymph # (Auto) 0.58 L Absolute Neutrophils 9.65 H Carbon Dioxide 20 L BUN 25 H Meds: Medications Acetaminophen (Acetaminophen 325 Mg Tablet) 650 mg PO Q6HP PRN; Protocol PRN Reason: Per Pain Protocol/Fever > 101 Hydrocodone Bitart/Acetaminophen (Hydrocodone/Apap 10/325mg Tablet) 0 tab PO Q4HP PRN; Protocol PRN Reason: Per Pain Protocol Hydrocodone Bitart/Acetaminophen (Hydrocodone/Apap 5/325mg Tablet) 1 tab PO Q4HP PRN PRN Reason: PAIN LEVEL 3-6 Albuterol/Ipratropium (Ipratropium/Albuterol 3 Ml Ampul.Neb) 3 ml NEB Q4HP PRN PRN Reason: Shortness Of Breath Aspirin (Aspirin 81 Mg Tab.Chew) 81 mg PO BID [facility] Bisacodyl (Bisacodyl 10 Mg Supp.Rect) 10 mg ID Q2-3DAYS PRN PRN Reason: Constipation Cefazolin Sodium (Cefazolin 1 Gm Vial) 2 gm IV Q8H [facility] Stop: 06/03/21 12:01 Last Admin: 06/03/21 04:01 Dose: 2 gm Documented by: Docusate Sodium (Docusate Sodium 100 Mg Capsule) 100 mg PO BID [facility] Hydralazine HCl (Hydralazine 20 Mg/Ml Vial) 0 mg IV Q2HP PRN PRN Reason: Hypertension Lactated Ringer's (Lactated Ringers) 1,000 mls @ 100 mls/hr IV .Q10H [facility] Last Admin: 06/03/21 06:32 Dose: Not Given Documented by: Potassium Chloride 40 meq/ (Dextrose) 520 mls @ 130 mls/hr IV UD PRN PRN Reason: Potassium < 3 Magnesium Sulfate (Magnesium Sulfate) 2 gm in 50 mls @ 50 mls/hr IV UD PRN PRN Reason: Magnesium </= 1.6 Sodium Chloride (Sodium Chloride 0.9%) 1,000 mls @ 75 mls/hr IV .[id number] [facility] Stop: 06/04/21 01:05 Last Admin: 06/03/21 06:27 Dose: Not Given Documented by: Magnesium Hydroxide (Magnesium Hydroxide 30 Ml Oral.Susp) 30 ml PO BIDP PRN PRN Reason: Constipation Methocarbamol (Methocarbamol 750 Mg Tablet) 750 mg PO Q6HP PRN PRN Reason: Muscle Spasm Morphine Sulfate (Morphine 4 Mg/Ml Vial) 0 mg IV Q1HP PRN; Protocol PRN Reason: Per Pain Protocol Last Admin: 06/03/21 04:01 Dose: 4 mg Documented by: Morphine Sulfate (Morphine 4 Mg/Ml Vial) 0 mg IV Q3HP PRN PRN Reason: Pain Ondansetron HCl (Ondansetron 4 Mg Odt Tablet) 4 mg SL Q4HP PRN; Protocol PRN Reason: Nausea And Vomiting Ondansetron HCl (Ondansetron 4 Mg/2 Ml Vial) 4 mg IV Q4HP PRN PRN Reason: Nausea And Vomiting Polyethylene Glycol (Polyethylene Glycol 3350 17 Gm Packet) 17 gm PO DAILYP PRN PRN Reason: Constipation Potassium Chloride (Potassium Chloride 20 Meq Tablet) 40 meq PO UD PRN PRN Reason: Potssium is 3-3.5 Potassium Chloride (Potassium Chloride 20 Meq Tablet) 40 meq PO UD PRN PRN Reason: Potassium < 3 Senna (Sennosides 1 Tablet) 2 tab PO HS [facility] Sodium Biphosphate/Sodium Phosphate (Fleets Adult Enema) 1 dose ID Q3-4DAYS PRN PRN Reason: Constipation Sodium Chloride (0.9 % Sodium Chloride 10 Ml Syringe) 10 ml IV Q8 [facility] Last Admin: 06/03/21 04:26 Dose: Not Given Documented by: Throat Lozenges (Benzocaine/Menthol 1 Lozenge) 1 lozenge PO PRN PRN PRN Reason: Sore Throat A/P Narrative A/P Narrative: A: *Left hip fracture: s/p ORIF (06/02) *recent Zoster infection to Left back (thoracic): recently started on gabapentin, increased cymbalta, lidoderm *h/o CAD w/stent: *HTN/HLD: *Crohn's: On azathioprine *Anxiety/depression: P: -Dr. Cohen for orthopedic surgery -pt/ot -cont norvasc/ACEI, held BB initially for mild Bradycardia - restart at lower dose -ppx: SCD, post op per ortho ASA bid DNR Time Spent With Patient Time: Total time spent is greater than 50% in coordination of care (as documented) at patient's floor/unit and/or counseling patient: QUALITY VTE Deep Vein Thrombosis/Pulmonary Embolism Present on Admission: No
--- NOTE | 2021-06-03 07:48 | Operative Note ---
DATE OF OPERATION: 06/02/2021 PREOPERATIVE DIAGNOSIS: Femoral neck fracture, left hip. POSTOPERATIVE DIAGNOSIS: Femoral neck fracture, left hip. PROCEDURE: Left hip hemiarthroplasty. SURGEON: Rashaun Cohen M.D. CASHIER CLERK SURGEON: Amos Ambriz PA-C. This providers expertise and technical skill were required throughout the case. The VEENA assisted with preoperative coordination, intraoperative retraction, wound closure, and dressing and splint application, as well as postoperative documentation and care coordination. ANESTHESIA: Spinal with LMA assist. ESTIMATED BLOOD LOSS: 150 mL COMPLICATIONS: None noted. SPECIMENS REMOVED: None DRAINS: None IMPLANTS: DePuy modular [place] tapered spacer 12/14 +0, DePuy [place] femoral stem tapered basic cemented size 5, DePuy stem centralizer 10.5 mm, cemented, DePuy modular [place] fracture head hip ball 48 mm diameter. INDICATIONS: The patient fell and was unable to ambulate. Radiographs have confirmed a displaced femoral neck fracture. The patient was admitted to the hospital and underwent medical clearance. After a long discussion about treatment options, the patient elected to proceed with a hip hemiarthroplasty. The risks and benefits were discussed with the patient in detail including, but not limited to, the risks of anesthesia, problems with the heart or lungs related to anesthesia, infection, compromise or injury to the nerves and blood vessels, deep venous thrombosis, pulmonary embolism, pneumonia, continued pain after surgery, worsening pain or symptoms after surgery, swelling, loss of motion, instability, leg length discrepancy, and need for repeat surgery. DESCRIPTION OF PROCEDURE: The patient was seen in pre-anesthesia waiting room where all questions were answered and the correct side and site were identified and marked. The patient was then brought to the operating room and administered the anesthetic, tranexamic acid, and given pre-operative antibiotics. A time-out was then called. The patient was placed in the lateral decubitus position with all prominences well padded using the Irwin frame and the extremity was prepped and draped in the usual sterile fashion. A standard posterior approach was made. We dissected through the skin and subcutaneous tissue to the deep fascia. The deep fascia was split in line with the incision and a Charnley retractor was placed. We exposed, tagged, and incised the short external rotators and piriformis tendon and retracted them posteriorly to help protect the sciatic nerve which was palpated throughout the case. We then performed a T-capsulotomy and tagged the capsule edges. The hip was then dislocated and a femoral neck osteotomy was performed to the pre-surgical templated level off the lesser trochanter. The head was removed and sized. The acetabulum was inspected and did not have a significant degree of osteoarthritis. All bone and fracture debris was removed. Our attention was now turned to the femur. We placed retractors for visualization, internally rotated the femur, and established intramedullary access. We incrementally broached our stem to a stable platform medial, lateral, and rotationally with the appropriate version. We then performed a calcar reaming off the broach. Trials were then placed and optimized for leg length, soft tissue tension, and stability. Best stability, length, and offset characteristics were obtained with these sizes. We removed all trials and impacted the femoral stem to its broached location using a fourth-generation cementing technique and placed the head. Final reduction was performed. Again, good stability, leg length, and offset characteristics were noted. We irrigated with three liters of antibiotic saline. We closed the capsule with #2 FiberWire. We closed the fascia with a combination of #1 Strata-fix and #0 Vicryl. We closed the subcutaneous tissue and skin in layers out to deondre on the skin. A sterile pressure dressing and abduction wedge was applied. All needle and sponge counts were correct. The patient was transferred to the recovery room in stable condition HERACLIO:[email or web address] Job ID: [id number] Doc ID: [id number] Willard Cohen MD
[2021-06-03] MEDS: PANTOPRAZOLE 40 MG TABLET PO SCH (07:51)
[2021-06-03 07:52] LABS: Basophils # (Auto) 0.02 K/mcL (0.00-0.30); Basophils % (Auto) 0.2 % (0.0-2.0); Eosinophils # (Auto) 0 K/mcL (0.00-0.70); Eosinophils % (Auto) 0 % (0.0-7.0); Hematocrit 32.9 % (34.1-44.9); Hemoglobin 10.4 g/dL (11.2-15.7); Lymphocytes # (Auto) 0.35 K/mcL (1.50-4.80); Lymphocytes % (Auto) 3.5 % (15.5-49.0); Mean Cell Volume 97.6 fL (80.0-100.0); Mean Corpuscular HGB Conc 31.6 g/dL (31.0-36.0); Monocytes # (Auto) 0.81 K/mcL (0.10-0.90); Monocytes % (Auto) 8.1 % (1.0-12.0); Neutrophils % (Auto) 88.2 % (38.0-78.0); Platelet Count 223 K/mcL (140-440); RBC 3.37 M/mcL (3.59-5.38); Red Cell Distribution Width 14.6 % (11.5-14.5)
[2021-06-03] MEDS: ASPIRIN 81 MG TAB.CHEW PO SCH ×2 (08:32→21:31)
[2021-06-03] MEDS: DOCUSATE SODIUM 100 MG CAPSULE PO SCH ×2 (08:32→21:33)
[2021-06-03] MEDS: ATORVASTATIN 10 MG TABLET PO SCH (08:32)
[2021-06-03] MEDS: azaTHIOprine 50 MG TABLET PO SCH ×2 (08:32→21:32)
[2021-06-03] MEDS: DULoxetine 30 MG CAPSULE PO SCH (08:32)
[2021-06-03 08:48] LABS: ALT/SGPT 11 U/L (<40); AST/SGOT 20 U/L (<32); Albumin 2.8 gm/dL (3.2-5.2); Albumin/Globulin Ratio 1.2 (1.0-2.3); Alkaline Phosphatase 33 U/L (39-117); Bilirubin,Direct < 0.2 mg/dL (0-0.3); Bilirubin,Total 0.3 mg/dL (0.1-1.0); Blood Urea Nitrogen 22 mg/dL (8-23); Calcium 8.1 mg/dL (8.6-10.4); Carbon Dioxide 20 mmol/L (22-30); Chloride 103 mmol/L (96-108); Globulin 2.3 gm/dL (2.2-3.7); Glomerular Filtration Rate 59; Glucose 101 mg/dL (70-105); Lactate Dehydrogenase 190 U/L (135-225); Phosphorous 4.4 mg/dL (2.5-4.5); Triglycerides 156 mg/dL (<150)
[2021-06-03 08:50] LABS: Appearance,Urine CLEAR (Clear); Bilirubin,Urine Negative (Negative); Color,Urine YELLOW; Culture Indicated,Urine No; Glucose,Urine (UA) Negative (Negative); Ketones,Urine Negative (Negative); Leukocyte Esterase,Urine Negative /uL (Negative); Mucus,Urine FEW /hpf; Nitrate,Urine Negative (Negative); Protein,Urine Negative (Negative); Urine Blood 0.03 mg/dL (Negative); Urine RBC 23 /hpf (0-3); Urine Squamous Epithelial Cell 0 /hpf (0-4); Urine WBC 2 /hpf (0-4); Urobilinogen,Urine Negative
[2021-06-03] MEDS: HYDROcodone/APAP 10/325MG TABLET PO PRN ×3 (09:48→21:32)
[2021-06-03] MEDS: LISINOPRIL 20 MG TABLET PO SCH (21:31)
[2021-06-03] MEDS: FENOFIBRATE 43 MG CAPSULE PO SCH (21:32)
[2021-06-03] MEDS: SENNOSIDES 1 TABLET PO SCH (21:33)
--- NOTE | 2021-06-03 22:18 | EKG ---
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
[2021-06-04] MEDS: HYDROcodone/APAP 10/325MG TABLET PO PRN ×2 (04:40→07:54)
[2021-06-04] MEDS: 0.9 % SODIUM CHLORIDE 10 ML SYRINGE IV SCH ×3 (05:50→21:54)
[2021-06-04] MEDS: LACTATED RINGERS 1,000 ML IV SCH ×2 (05:50→05:58)
[2021-06-04] MEDS: PANTOPRAZOLE 40 MG TABLET PO SCH (07:16)
--- NOTE | 2021-06-04 07:55 | Internal Med Progress Note ---
SUBJECTIVE Subjective Patient information: Note initiated : 06/04/21 at 7:53 am Service Date, if different from initiated Date: [] Patient: Katheryn Hendrickson a 86 y/o F admitted on 06/02/21 for Fall, left femur pain. Chief Complaint: [] Interval history: History of present illness: Ms. Hendrickson is a 86 year old F Patient fell onto left hip resulting in fracture. She has shingles left back area. She is on gabapentin. Patient states the medication has made her dizzy as time which caused her to fall today. [facility] was contacted for orthopedics. Patient denies chest pain shortness of breath did not hit her head. 06/03 Patient had ORIF last night. No overnight events. No new complaints. Postop anemia plus delusional. 06/04 No overnight events new complaints. Waiting placement. Review of Systems: denies headache/fever/chills/nausea/vomiting/chest or abdominal pain/cough/dyspnea/diarrhea. Otherwise see above. Constitutional Vitals: Vital Signs Temp Pulse Resp BP Pulse Ox 97.1 F 74 16 135/65 93 06/04/21 06:53 06/04/21 06:53 06/04/21 06:53 06/04/21 06:53 06/04/21 06:53 Period Temp Pulse Resp BP Sys/Rivera Pulse Ox Last 24 Hr 97 F-98.4 F 68-92 16-20 106-135/60-82 92-94 Intake and Output 06/03/21 06/04/21 06/04/21 21:59 05:59 13:59 Intake Total 1000 1098 Output Total 500 650 Balance 500 448 Weight 63.503 kg Intake & Output: Intake & Output 06/03/21 06/04/21 06/04/21 21:59 05:59 13:59 Intake Total 1000 1098 Output Total 500 650 Balance 500 448 Weight 63.503 kg Intake: IV 1000 998 Lactated Ringers 1,000 ml @ 100 1000 998 mls/hr IV .Q10H MARISSA Rx#: [id number] Oral 100 Output: Urine Catheter Amount 500 650 Other: Meal Dinner Percent of Meal Consumed 25% Feeding Ability Independent Urine Appearance Clear Urine Color Dark Yellow Straw Urine Odor Strong Strong Exam: General: Alert, Awake, No acute Distress Eyes/N/T: EOMI, Head/Neck: neck supple, CV: RRR, No murmurs, Pulm: Clear b/l, no wheezing/rhonchi/rales Abd: soft, nontender, +BS x4 Ext: no clubbing/cyanosis/edema Neuro: Alert, no focal deficits, moves all extremities, Skin: warm/dry OBJ DATA Labs CBC & Chem 7: 06/03/21 06:48 06/03/21 06:47 Labs: Abnormal Lab Results 06/03/21 06/03/21 06/03/21 07:15 06:48 06:47 WBC RBC 3.37 L Hgb 10.4 L Hct 32.9 L RDW 14.6 H Neut % (Auto) 88.2 H Lymph % (Auto) 3.5 L Lymph # (Auto) 0.35 L Absolute Neutrophils 8.82 H Carbon Dioxide 20 L BUN Calcium 8.1 L Magnesium 2.6 H Alkaline Phosphatase 33 L Total Protein 5.1 L Albumin 2.8 L Triglycerides 156 H Urine RBC 23 H Urine Mucus Few A 06/02/21 06/02/21 12:18 12:07 WBC 11.1 H RBC Hgb Hct RDW 14.6 H Neut % (Auto) 86.9 H Lymph % (Auto) 5.2 L Lymph # (Auto) 0.58 L Absolute Neutrophils 9.65 H Carbon Dioxide 20 L BUN 25 H Calcium Magnesium Alkaline Phosphatase Total Protein Albumin Triglycerides Urine RBC Urine Mucus Meds: Medications Acetaminophen (Acetaminophen 325 Mg Tablet) 650 mg PO Q6HP PRN; Protocol PRN Reason: Per Pain Protocol/Fever > 101 Hydrocodone Bitart/Acetaminophen (Hydrocodone/Apap 10/325mg Tablet) 0 tab PO Q4HP PRN; Protocol PRN Reason: Per Pain Protocol Last Admin: 06/04/21 04:40 Dose: 2 tab Documented by: Albuterol/Ipratropium (Ipratropium/Albuterol 3 Ml Ampul.Neb) 3 ml NEB Q4HP PRN PRN Reason: Shortness Of Breath Amlodipine Besylate (Amlodipine 5 Mg Tablet) 5 mg PO DAILY [facility] Aspirin (Aspirin 81 Mg Tab.Chew) 81 mg PO BID [facility] Last Admin: 06/03/21 21:31 Dose: 81 mg Documented by: Atorvastatin Calcium (Atorvastatin 10 Mg Tablet) 5 mg PO DAILY [facility] Last Admin: 06/03/21 08:32 Dose: 5 mg Documented by: Azathioprine (Azathioprine 50 Mg Tablet) 50 mg PO BID [facility] Last Admin: 06/03/21 21:32 Dose: 50 mg Documented by: Bisacodyl (Bisacodyl 10 Mg Supp.Rect) 10 mg [place] Q2-3DAYS PRN PRN Reason: Constipation Docusate Sodium (Docusate Sodium 100 Mg Capsule) 100 mg PO BID [facility] Last Admin: 06/03/21 21:33 Dose: Not Given Documented by: Duloxetine HCl (Duloxetine 30 Mg Capsule) 30 mg PO DAILY [facility] Last Admin: 06/03/21 08:32 Dose: 30 mg Documented by: Fenofibrate (Fenofibrate 43 Mg Capsule) 215 mg PO [facility] Last Admin: 06/03/21 21:32 Dose: 215 mg Documented by: Hydralazine HCl (Hydralazine 20 Mg/Ml Vial) 0 mg IV Q2HP PRN PRN Reason: Hypertension Lactated Ringer's (Lactated Ringers) 1,000 mls @ 100 mls/hr IV .Q10H [facility] Last Admin: 06/04/21 05:58 Dose: 100 mls/hr Documented by: Potassium Chloride 40 meq/ (Dextrose) 520 mls @ 130 mls/hr IV UD PRN PRN Reason: Potassium < 3 Magnesium Sulfate (Magnesium Sulfate) 2 gm in 50 mls @ 50 mls/hr IV UD PRN PRN Reason: Magnesium </= 1.6 Lisinopril (Lisinopril 20 Mg Tablet) 40 mg PO [facility] Last Admin: 06/03/21 21:31 Dose: 40 mg Documented by: Magnesium Hydroxide (Magnesium Hydroxide 30 Ml Oral.Susp) 30 ml PO BIDP PRN PRN Reason: Constipation Methocarbamol (Methocarbamol 750 Mg Tablet) 750 mg PO Q6HP PRN PRN Reason: Muscle Spasm Morphine Sulfate (Morphine 4 Mg/Ml Vial) 0 mg IV Q1HP PRN; Protocol PRN Reason: Per Pain Protocol Last Admin: 06/03/21 04:01 Dose: 4 mg Documented by: Ondansetron HCl (Ondansetron 4 Mg Odt Tablet) 4 mg SL Q4HP PRN; Protocol PRN Reason: Nausea And Vomiting Ondansetron HCl (Ondansetron 4 Mg/2 Ml Vial) 4 mg IV Q4HP PRN PRN Reason: Nausea And Vomiting Pantoprazole Sodium (Pantoprazole 40 Mg Tablet) 40 mg PO QAMAC [facility] Last Admin: 06/04/21 07:16 Dose: 40 mg Documented by: Polyethylene Glycol (Polyethylene Glycol 3350 17 Gm Packet) 17 gm PO DAILYP PRN PRN Reason: Constipation Potassium Chloride (Potassium Chloride 20 Meq Tablet) 40 meq PO UD PRN PRN Reason: Potssium is 3-3.5 Potassium Chloride (Potassium Chloride 20 Meq Tablet) 40 meq PO UD PRN PRN Reason: Potassium < 3 Senna (Sennosides 1 Tablet) 2 tab PO HS [facility] Last Admin: 06/03/21 21:33 Dose: Not Given Documented by: Sodium Biphosphate/Sodium Phosphate (Fleets Adult Enema) 1 dose [place] Q3-4DAYS PRN PRN Reason: Constipation Sodium Chloride (0.9 % Sodium Chloride 10 Ml Syringe) 10 ml IV Q8 [facility] Last Admin: 06/04/21 05:50 Dose: Not Given Documented by: Throat Lozenges (Benzocaine/Menthol 1 Lozenge) 1 lozenge PO PRN PRN PRN Reason: Sore Throat A/P Narrative A/P Narrative: A: *Left hip fracture: s/p ORIF (06/02) *recent Zoster infection to Left back (thoracic): recently started on gabapentin, increased cymbalta, lidoderm *h/o CAD w/stent: *HTN/HLD: *Crohn's: On azathioprine *Anxiety/depression: P: -Dr. Cohen for orthopedic surgery -pt/ot -cont norvasc/ACEI, held BB initially for mild Bradycardia - restart at lower dose -ppx: SCD, post op per ortho ASA bid DNR Time Spent With Patient Time: Total time spent is greater than 50% in coordination of care (as documented) at patient's floor/unit and/or counseling patient: QUALITY VTE Deep Vein Thrombosis/Pulmonary Embolism Present on Admission: No
[2021-06-04] MEDS: amLODIPine 5 MG TABLET PO SCH (08:36)
[2021-06-04] MEDS: ASPIRIN 81 MG TAB.CHEW PO SCH ×2 (08:36→21:53)
[2021-06-04] MEDS: ATORVASTATIN 10 MG TABLET PO SCH (08:36)
[2021-06-04] MEDS: METOPROLOL SUCCINATE 25 MG TAB.XL.24H PO SCH (08:36)
[2021-06-04] MEDS: azaTHIOprine 50 MG TABLET PO SCH ×2 (08:36→21:53)
[2021-06-04] MEDS: DOCUSATE SODIUM 100 MG CAPSULE PO SCH ×2 (08:36→22:00)
[2021-06-04] MEDS: DULoxetine 30 MG CAPSULE PO SCH (08:36)
--- NOTE | 2021-06-04 09:05 | Orthopedic History & Physical ---
HPI History of Present Illness Patient information: Note initiated : 06/04/21 at 8:59 am Service Date, if different from initiated Date: [] Patient: Katheryn Hendrickson 86 y/o F admitted on 06/02/21 for Fall, left femur pain. Chief Complaint: [] History of present illness: Ms. Hendrickson is a 86 year old F Review of Systems All systems: reviewed and no additional remarkable complaints except as stated PFSH PFSH All Active Problems Acute pain of left hip (Acute) Crohn's disease (Acute) Closed fracture of left hip (Acute) Easy bruising (Chronic) Difficulty in walking (Chronic) Heartburn (Chronic) Visual changes (Chronic) Weight loss (Chronic) Depression (Chronic) Heart disease (Chronic) Glaucoma (Chronic) Zoster without complications (Acute) Benign nevus (Chronic) Seborrheic dermatitis (Chronic) Pain in left knee (Chronic) Thoracic back pain (Chronic) Osteoarthritis (Chronic) Osteopenia (Chronic) Vitamin D deficiency (Chronic) Dumping syndrome (Chronic) Crohn's disease (Chronic) Anxiety (Chronic) Hyperlipemia (Chronic) Palpitations (Chronic) Disorder of bone density and structure, unspecified (Chronic) Skin cancer (Chronic) Angioma (Chronic) Solar elastosis (Chronic) Seborrheic keratoses (Chronic) Hypertension (Chronic) Shingles (Chronic) Flank pain (Chronic) Postherpetic neuralgia (Chronic) Medical History Angioma Anxiety Benign nevus Crohn's disease Depression Difficulty in walking Disorder of bone density and structure, unspecified Dumping syndrome Easy bruising Flank pain Glaucoma Heart disease Heartburn Hyperlipemia Hypertension Osteoarthritis Osteopenia Pain in left knee Palpitations Postherpetic neuralgia Seborrheic dermatitis Seborrheic keratoses Shingles Skin cancer Solar elastosis Thoracic back pain Visual changes Vitamin D deficiency Weight loss Zoster without complications Surgical History History of appendectomy History of cholecystectomy History of coronary artery stent placement History of hysterectomy Family History Brother Lung cancer Unknown Diabetes Hypercholesterolemia Hypothyroidism Mother Arthritis Hypertension Father Heart disease Social History marital status: education level: college occupational status: retired physical activity: other frequency: 3-4 times per week smoking status: Never smoker alcohol intake frequency: does not drink substance use type: does not use MEDS/ALLERGIES Home Medications and Allergies Home Medications Medication Instructions Recorded Confirmed Type amlodipine 5 mg tablet 5 mg PO DAILY 05/23/21 06/03/21 History aspirin 81 mg tablet,delayed 81 mg PO QDAY 05/23/21 06/03/21 History release (Adult Low Dose Aspirin) azathioprine 50 mg tablet 50 mg PO BID 05/23/21 06/03/21 History duloxetine 30 mg capsule,delayed 30 mg PO DAILY cap 05/23/21 06/03/21 History release fenofibrate micronized 200 mg 200 mg PO QPM 05/23/21 06/03/21 History capsule lisinopril 40 mg tablet 40 mg PO QPM 05/23/21 06/03/21 History metoprolol succinate 25 mg 25 mg PO BID 05/23/21 06/03/21 History tablet,extended release 24 hr rosuvastatin 5 mg tablet 2.5 mg PO QAM 05/23/21 06/03/21 History aspirin 81 mg tablet,delayed 81 mg PO BID #30 tab 06/02/21 Rx release (Aspirin Low Dose) hydrocodone 10 mg-acetaminophen 1 - 2 tab PO Q4H PRN #60 tab 06/02/21 Rx 325 mg tablet dexlansoprazole 60 mg 60 mg PO QDAY 06/03/21 06/03/21 History capsule,biphase delayed release (Dexilant) vitamin B complex (B 1 tab PO QDAY 06/03/21 06/03/21 History Complex-Vitamin B12) gabapentin 300 mg tablet 300 mg PO TID 06/04/21 06/04/21 History Allergies Allergy/AdvReac Type Severity Reaction Status Date / Time Cyclobenzaprine Allergy Unknown Verified 06/02/21 09:44 [From Flexeril] Physical Examination Narrative Narrative: Narrative: Results Labs Result Diagrams: 06/03/21 06:48 06/03/21 06:47 Labs: H & H 06/02/21 06/03/21 Range/Units 12:18 06:48 Hgb 13.3 10.4 L (11.2-15.7) g/dL Hct 40.1 32.9 L (34.1-44.9) % Coagulation 06/02/21 Range/Units 12:30 INR 1.0 (0.9-1.1) All other labs normal. A/P Narrative A/P Narrative: Patient seen and examined this am. Awake, alert, seated in bed eating breakfast. Has expected post op pain but feels it is well managed on current regimen. Both lower extremities warm, well perfused and neuro intact. SCDs for DVT prophylaxis intact, dressing at LLE clean dry and intact. denies ambulation or weight bearing currently. She is WB as tolerated, PT/OT Plan is for expected discharge to rehab in 1-2 days and follow up at [facility] in 10- 14 days Time Spent With Patient Time: Total time spent is greater than 50% in coordination of care (as documented) at patient's floor/unit and/or counseling patient:
[2021-06-04] MEDS: GABAPENTIN 300 MG CAPSULE PO SCH ×2 (14:56→21:53)
[2021-06-04] MEDS: METHOCARBAMOL 750 MG TABLET PO PRN ×2 (16:00→21:52)
[2021-06-04] MEDS: ACETAMINOPHEN 325 MG TABLET PO PRN ×2 (16:00→21:52)
[2021-06-04] MEDS: LISINOPRIL 20 MG TABLET PO SCH (21:53)
[2021-06-04] MEDS: FENOFIBRATE 43 MG CAPSULE PO SCH (21:54)
[2021-06-04] MEDS: SENNOSIDES 1 TABLET PO SCH (22:00)
[2021-06-05] MEDS: 0.9 % SODIUM CHLORIDE 10 ML SYRINGE IV SCH ×3 (05:57→21:54)
[2021-06-05] MEDS: PANTOPRAZOLE 40 MG TABLET PO SCH (07:29)
--- NOTE | 2021-06-05 07:56 | Internal Med Progress Note ---
SUBJECTIVE Subjective Patient information: Note initiated : 06/05/21 at 7:55 am Service Date, if different from initiated Date: [] Patient: Katheryn Hendrickson a 86 y/o F admitted on 06/02/21 for Fall, left femur pain. Chief Complaint: [] Interval history: History of present illness: Ms. Hendrickson is a 86 year old F Patient fell onto left hip resulting in fracture. She has shingles left back area. She is on gabapentin. Patient states the medication has made her dizzy as time which caused her to fall today. [facility] was contacted for orthopedics. Patient denies chest pain shortness of breath did not hit her head. 06/03 Patient had ORIF last night. No overnight events. No new complaints. Postop anemia plus delusional. 06/04 No overnight events new complaints. Waiting placement. 06/05 No overnight events. Patient emotional this morning states she is upset with her for not coming by. Review of Systems: denies headache/fever/chills/nausea/vomiting/chest or abdominal pain/cough/dyspnea/diarrhea. Otherwise see above. Constitutional Vitals: Vital Signs Temp Pulse Resp BP Pulse Ox 97.8 F 87 16 138/77 96 06/05/21 07:06 06/05/21 04:00 06/05/21 07:06 06/05/21 07:06 06/05/21 07:06 Period Temp Pulse Resp BP Sys/Rivera Pulse Ox Last 24 Hr 97.3 F-97.9 F 71-96 16-20 98-149/60-99 93-96 Intake and Output 06/04/21 06/05/21 06/05/21 21:59 05:59 13:59 Intake Total 480 Output Total 700 450 Balance -700 30 Weight 59.562 kg Intake & Output: Intake & Output 06/04/21 06/05/21 06/05/21 21:59 05:59 13:59 Intake Total 480 Output Total 700 450 Balance -700 30 Weight 59.562 kg Intake: Oral 480 Output: Urine Catheter Amount 700 Void Amount 450 Other: Urine Appearance Clear Clear Clear Urine Color Dark Yellow Straw Bright Yellow Urine Odor Normal Normal # Voids 400 Exam: General: Alert, Awake, No acute Distress Eyes/N/T: EOMI, Head/Neck: neck supple, CV: RRR, No murmurs, Pulm: Clear b/l, no wheezing/rhonchi/rales Abd: soft, nontender, +BS x4 Ext: no clubbing/cyanosis/edema Neuro: Alert, no focal deficits, moves all extremities, Skin: warm/dry OBJ DATA Labs CBC & Chem 7: 06/03/21 06:48 06/03/21 06:47 Labs: Abnormal Lab Results 06/03/21 06/03/21 06/03/21 07:15 06:48 06:47 WBC RBC 3.37 L Hgb 10.4 L Hct 32.9 L RDW 14.6 H Neut % (Auto) 88.2 H Lymph % (Auto) 3.5 L Lymph # (Auto) 0.35 L Absolute Neutrophils 8.82 H Carbon Dioxide 20 L BUN Calcium 8.1 L Magnesium 2.6 H Alkaline Phosphatase 33 L Total Protein 5.1 L Albumin 2.8 L Triglycerides 156 H Urine RBC 23 H Urine Mucus Few A 06/02/21 06/02/21 12:18 12:07 WBC 11.1 H RBC Hgb Hct RDW 14.6 H Neut % (Auto) 86.9 H Lymph % (Auto) 5.2 L Lymph # (Auto) 0.58 L Absolute Neutrophils 9.65 H Carbon Dioxide 20 L BUN 25 H Calcium Magnesium Alkaline Phosphatase Total Protein Albumin Triglycerides Urine RBC Urine Mucus Meds: Medications Acetaminophen (Acetaminophen 325 Mg Tablet) 650 mg PO Q6HP PRN; Protocol PRN Reason: Per Pain Protocol/Fever > 101 Last Admin: 06/04/21 21:52 Dose: 650 mg Documented by: Hydrocodone Bitart/Acetaminophen (Hydrocodone/Apap 10/325mg Tablet) 0 tab PO Q4HP PRN; Protocol PRN Reason: Per Pain Protocol Last Admin: 06/04/21 07:54 Dose: 1 tab Documented by: Albuterol/Ipratropium (Ipratropium/Albuterol 3 Ml Ampul.Neb) 3 ml NEB Q4HP PRN PRN Reason: Shortness Of Breath Amlodipine Besylate (Amlodipine 5 Mg Tablet) 5 mg PO DAILY [facility] Last Admin: 06/04/21 08:36 Dose: 5 mg Documented by: Aspirin (Aspirin 81 Mg Tab.Chew) 81 mg PO BID [facility] Last Admin: 06/04/21 21:53 Dose: 81 mg Documented by: Atorvastatin Calcium (Atorvastatin 10 Mg Tablet) 5 mg PO DAILY [facility] Last Admin: 06/04/21 08:36 Dose: 5 mg Documented by: Azathioprine (Azathioprine 50 Mg Tablet) 50 mg PO BID [facility] Last Admin: 06/04/21 21:53 Dose: 50 mg Documented by: Bisacodyl (Bisacodyl 10 Mg Supp.Rect) 10 mg [place] Q2-3DAYS PRN PRN Reason: Constipation Docusate Sodium (Docusate Sodium 100 Mg Capsule) 100 mg PO BID [facility] Last Admin: 06/04/21 22:00 Dose: Not Given Documented by: Duloxetine HCl (Duloxetine 30 Mg Capsule) 30 mg PO DAILY [facility] Last Admin: 06/04/21 08:36 Dose: 30 mg Documented by: Fenofibrate (Fenofibrate 43 Mg Capsule) 215 mg PO [facility] Last Admin: 06/04/21 21:54 Dose: 215 mg Documented by: Gabapentin (Gabapentin 300 Mg Capsule) 300 mg PO TID [facility] Last Admin: 06/04/21 21:53 Dose: 300 mg Documented by: Hydralazine HCl (Hydralazine 20 Mg/Ml Vial) 0 mg IV Q2HP PRN PRN Reason: Hypertension Potassium Chloride 40 meq/ (Dextrose) 520 mls @ 130 mls/hr IV UD PRN PRN Reason: Potassium < 3 Magnesium Sulfate (Magnesium Sulfate) 2 gm in 50 mls @ 50 mls/hr IV UD PRN PRN Reason: Magnesium </= 1.6 Lisinopril (Lisinopril 20 Mg Tablet) 40 mg PO [facility] Last Admin: 06/04/21 21:53 Dose: 40 mg Documented by: Magnesium Hydroxide (Magnesium Hydroxide 30 Ml Oral.Susp) 30 ml PO BIDP PRN PRN Reason: Constipation Methocarbamol (Methocarbamol 750 Mg Tablet) 750 mg PO Q6HP PRN PRN Reason: Muscle Spasm Last Admin: 06/04/21 21:52 Dose: 750 mg Documented by: Metoprolol Succinate (Metoprolol Succinate 25 Mg Tab.Xl.24h) 25 mg PO DAILY [facility] Last Admin: 06/04/21 08:36 Dose: 25 mg Documented by: Morphine Sulfate (Morphine 4 Mg/Ml Vial) 0 mg IV Q1HP PRN; Protocol PRN Reason: Per Pain Protocol Last Admin: 06/03/21 04:01 Dose: 4 mg Documented by: Ondansetron HCl (Ondansetron 4 Mg Odt Tablet) 4 mg SL Q4HP PRN; Protocol PRN Reason: Nausea And Vomiting Ondansetron HCl (Ondansetron 4 Mg/2 Ml Vial) 4 mg IV Q4HP PRN PRN Reason: Nausea And Vomiting Pantoprazole Sodium (Pantoprazole 40 Mg Tablet) 40 mg PO QAMAC [facility] Last Admin: 06/05/21 07:29 Dose: 40 mg Documented by: Polyethylene Glycol (Polyethylene Glycol 3350 17 Gm Packet) 17 gm PO DAILYP PRN PRN Reason: Constipation Potassium Chloride (Potassium Chloride 20 Meq Tablet) 40 meq PO UD PRN PRN Reason: Potssium is 3-3.5 Potassium Chloride (Potassium Chloride 20 Meq Tablet) 40 meq PO UD PRN PRN Reason: Potassium < 3 Senna (Sennosides 1 Tablet) 2 tab PO HS [facility] Last Admin: 06/04/21 22:00 Dose: Not Given Documented by: Sodium Biphosphate/Sodium Phosphate (Fleets Adult Enema) 1 dose [place] Q3-4DAYS PRN PRN Reason: Constipation Sodium Chloride (0.9 % Sodium Chloride 10 Ml Syringe) 10 ml IV Q8 [facility] Last Admin: 06/05/21 05:57 Dose: 10 ml Documented by: Throat Lozenges (Benzocaine/Menthol 1 Lozenge) 1 lozenge PO PRN PRN PRN Reason: Sore Throat A/P Narrative A/P Narrative: A: *Left hip fracture: s/p ORIF (06/02) *recent Zoster infection to Left back (thoracic): recently started on gabapentin, increased cymbalta, lidoderm *h/o CAD w/stent: *HTN/HLD: *Crohn's: On azathioprine *Anxiety/depression: P: -Dr. Cohen for orthopedic surgery -pt/ot -cont norvasc/ACEI, held BB initially for mild Bradycardia - restarted at lower dose -ppx: SCD, post op per ortho ASA bid DNR Time Spent With Patient Time: Total time spent is greater than 50% in coordination of care (as documented) at patient's floor/unit and/or counseling patient: QUALITY VTE Deep Vein Thrombosis/Pulmonary Embolism Present on Admission: No
--- NOTE | 2021-06-05 07:59 | Orthopedic Progress Note ---
SUBJECTIVE Subjective Patient information: Note initiated : 06/05/21 at 7:55 am Service Date, if different from initiated Date: [] Patient: Katheryn Hendrickson 86 y/o F admitted on 06/02/21 for Fall, left femur pain. Chief Complaint: [POD 2 left hip julián arthroplasty: No acute events overnight. No shortness of breath, chest pain, pain controlled. No appetite. ambulate short distance] Constitutional Vitals: Vital Signs Temp Pulse Resp BP Pulse Ox 97.8 F 87 16 138/77 96 06/05/21 07:06 06/05/21 04:00 06/05/21 07:06 06/05/21 07:06 06/05/21 07:06 Period Temp Pulse Resp BP Sys/Rivera Pulse Ox Last 24 Hr 97.3 F-97.9 F 71-96 16-20 98-149/60-99 93-96 Intake and Output 06/04/21 06/05/21 06/05/21 21:59 05:59 13:59 Intake Total 480 Output Total 700 450 Balance -700 30 Weight 131 lb 5 oz Intake & Output: Intake & Output 06/04/21 06/05/21 06/05/21 21:59 05:59 13:59 Intake Total 480 Output Total 700 450 Balance -700 30 Weight 131 lb 5 oz Intake: Oral 480 Output: Urine Catheter Amount 700 Void Amount 450 Other: Urine Appearance Clear Clear Clear Urine Color Dark Yellow Straw Bright Yellow Urine Odor Normal Normal # Voids 400 Additional findings Additional findings: General: alert and oriented - left hip: some strikethrough on dressing but minimial. foot warm weel perfused. OBJ DATA Labs CBC & Chem 7: 06/03/21 06:48 06/03/21 06:47 Labs: Abnormal Lab Results 06/03/21 06/03/21 06/03/21 07:15 06:48 06:47 WBC RBC 3.37 L Hgb 10.4 L Hct 32.9 L RDW 14.6 H Neut % (Auto) 88.2 H Lymph % (Auto) 3.5 L Lymph # (Auto) 0.35 L Absolute Neutrophils 8.82 H Carbon Dioxide 20 L BUN Calcium 8.1 L Magnesium 2.6 H Alkaline Phosphatase 33 L Total Protein 5.1 L Albumin 2.8 L Triglycerides 156 H Urine RBC 23 H Urine Mucus Few A 06/02/21 06/02/21 12:18 12:07 WBC 11.1 H RBC Hgb Hct RDW 14.6 H Neut % (Auto) 86.9 H Lymph % (Auto) 5.2 L Lymph # (Auto) 0.58 L Absolute Neutrophils 9.65 H Carbon Dioxide 20 L BUN 25 H Calcium Magnesium Alkaline Phosphatase Total Protein Albumin Triglycerides Urine RBC Urine Mucus Meds: Medications Acetaminophen (Acetaminophen 325 Mg Tablet) 650 mg PO Q6HP PRN; Protocol PRN Reason: Per Pain Protocol/Fever > 101 Last Admin: 06/04/21 21:52 Dose: 650 mg Documented by: Hydrocodone Bitart/Acetaminophen (Hydrocodone/Apap 10/325mg Tablet) 0 tab PO Q4HP PRN; Protocol PRN Reason: Per Pain Protocol Last Admin: 06/04/21 07:54 Dose: 1 tab Documented by: Albuterol/Ipratropium (Ipratropium/Albuterol 3 Ml Ampul.Neb) 3 ml NEB Q4HP PRN PRN Reason: Shortness Of Breath Amlodipine Besylate (Amlodipine 5 Mg Tablet) 5 mg PO DAILY [facility] Last Admin: 06/04/21 08:36 Dose: 5 mg Documented by: Aspirin (Aspirin 81 Mg Tab.Chew) 81 mg PO BID [facility] Last Admin: 06/04/21 21:53 Dose: 81 mg Documented by: Atorvastatin Calcium (Atorvastatin 10 Mg Tablet) 5 mg PO DAILY [facility] Last Admin: 06/04/21 08:36 Dose: 5 mg Documented by: Azathioprine (Azathioprine 50 Mg Tablet) 50 mg PO BID [facility] Last Admin: 06/04/21 21:53 Dose: 50 mg Documented by: Bisacodyl (Bisacodyl 10 Mg Supp.Rect) 10 mg GA Q2-3DAYS PRN PRN Reason: Constipation Docusate Sodium (Docusate Sodium 100 Mg Capsule) 100 mg PO BID [facility] Last Admin: 06/04/21 22:00 Dose: Not Given Documented by: Duloxetine HCl (Duloxetine 30 Mg Capsule) 30 mg PO DAILY [facility] Last Admin: 06/04/21 08:36 Dose: 30 mg Documented by: Fenofibrate (Fenofibrate 43 Mg Capsule) 215 mg PO HS [facility] Last Admin: 06/04/21 21:54 Dose: 215 mg Documented by: Gabapentin (Gabapentin 300 Mg Capsule) 300 mg PO TID [facility] Last Admin: 06/04/21 21:53 Dose: 300 mg Documented by: Hydralazine HCl (Hydralazine 20 Mg/Ml Vial) 0 mg IV Q2HP PRN PRN Reason: Hypertension Potassium Chloride 40 meq/ (Dextrose) 520 mls @ 130 mls/hr IV UD PRN PRN Reason: Potassium < 3 Magnesium Sulfate (Magnesium Sulfate) 2 gm in 50 mls @ 50 mls/hr IV UD PRN PRN Reason: Magnesium </= 1.6 Lisinopril (Lisinopril 20 Mg Tablet) 40 mg PO [facility] Last Admin: 06/04/21 21:53 Dose: 40 mg Documented by: Magnesium Hydroxide (Magnesium Hydroxide 30 Ml Oral.Susp) 30 ml PO BIDP PRN PRN Reason: Constipation Methocarbamol (Methocarbamol 750 Mg Tablet) 750 mg PO Q6HP PRN PRN Reason: Muscle Spasm Last Admin: 06/04/21 21:52 Dose: 750 mg Documented by: Metoprolol Succinate (Metoprolol Succinate 25 Mg Tab.Xl.24h) 25 mg PO DAILY [facility] Last Admin: 06/04/21 08:36 Dose: 25 mg Documented by: Morphine Sulfate (Morphine 4 Mg/Ml Vial) 0 mg IV Q1HP PRN; Protocol PRN Reason: Per Pain Protocol Last Admin: 06/03/21 04:01 Dose: 4 mg Documented by: Ondansetron HCl (Ondansetron 4 Mg Odt Tablet) 4 mg SL Q4HP PRN; Protocol PRN Reason: Nausea And Vomiting Ondansetron HCl (Ondansetron 4 Mg/2 Ml Vial) 4 mg IV Q4HP PRN PRN Reason: Nausea And Vomiting Pantoprazole Sodium (Pantoprazole 40 Mg Tablet) 40 mg PO QAMAC [facility] Last Admin: 06/05/21 07:29 Dose: 40 mg Documented by: Polyethylene Glycol (Polyethylene Glycol 3350 17 Gm Packet) 17 gm PO DAILYP PRN PRN Reason: Constipation Potassium Chloride (Potassium Chloride 20 Meq Tablet) 40 meq PO UD PRN PRN Reason: Potssium is 3-3.5 Potassium Chloride (Potassium Chloride 20 Meq Tablet) 40 meq PO UD PRN PRN Reason: Potassium < 3 Senna (Sennosides 1 Tablet) 2 tab PO [facility] Last Admin: 06/04/21 22:00 Dose: Not Given Documented by: Sodium Biphosphate/Sodium Phosphate (Fleets Adult Enema) 1 dose GA Q3-4DAYS PRN PRN Reason: Constipation Sodium Chloride (0.9 % Sodium Chloride 10 Ml Syringe) 10 ml IV Q8 [facility] Last Admin: 06/05/21 05:57 Dose: 10 ml Documented by: Throat Lozenges (Benzocaine/Menthol 1 Lozenge) 1 lozenge PO PRN PRN PRN Reason: Sore Throat A/P Assessment and plan (1) Closed fracture of left hip: Assessment and plan: POD 2 s/p left hip julián arthroplasty for femoral neck fracture -- wbat- PT/OT -----posterior hip precautions -- encourage diet, oral pain medications -- prophy: IS, scd's, mobilization, 81mg asa bid per surgeon. -- Dispo: will need SNF-pending Status: Acute Time Spent With Patient Time: Total time spent is greater than 50% in coordination of care (as documented) at patient's floor/unit and/or counseling patient:
[2021-06-05] MEDS: amLODIPine 5 MG TABLET PO SCH (08:40)
[2021-06-05] MEDS: ATORVASTATIN 10 MG TABLET PO SCH (08:40)
[2021-06-05] MEDS: METOPROLOL SUCCINATE 25 MG TAB.XL.24H PO SCH (08:40)
[2021-06-05] MEDS: DULoxetine 30 MG CAPSULE PO SCH (08:40)
[2021-06-05] MEDS: ASPIRIN 81 MG TAB.CHEW PO SCH ×2 (08:40→21:43)
[2021-06-05] MEDS: GABAPENTIN 300 MG CAPSULE PO SCH ×3 (08:40→21:43)
[2021-06-05] MEDS: azaTHIOprine 50 MG TABLET PO SCH ×2 (08:40→21:43)
[2021-06-05] MEDS: DOCUSATE SODIUM 100 MG CAPSULE PO SCH ×2 (08:40→21:53)
--- NOTE | 2021-06-05 11:28 | Discharge Summary ---
Discharge Provider Provider Patient information: Note initiated : 06/05/21 at 11:28 am Service Date, if different from initiated Date: [] Patient: Katheryn Hendrickson 86 y/o F admitted on 06/02/21 for Fall, left femur pain. Chief Complaint: [] Date of admission: 06/02/21 22:15 Discharge date: 06/06/21 Primary care physician: Hannah Oleary Consults: 06/02/21 Consult to Physician [CONS] Stat Comment: Consulting Provider: Rashaun Cohen Reason For Exam: Physician to Consult Consult to Physician [CONS] Stat Comment: Consulting Provider: Anton Gibbs Reason For Exam: Physician to Consult 06/02/21 22:26 Consult to Physician [CONS] Routine Comment: Consulting Provider: Rashaun Cohen Reason For Exam: Physician to Consult Discharge Meds Discharge Medications Home Medications amlodipine 5 mg tablet 5 mg PO DAILY 05/23/21 [History Confirmed 06/03/21 Last Taken Unknown] aspirin 81 mg tablet,delayed release (Adult Low Dose Aspirin) 81 mg PO QDAY 05/23/21 [History Confirmed 06/03/21 Last Taken Unknown] azathioprine 50 mg tablet 50 mg PO BID 05/23/21 [History Confirmed 06/03/21 Last Taken Unknown] duloxetine 30 mg capsule,delayed release 30 mg PO DAILY cap 05/23/21 [History Confirmed 06/03/21 Last Taken Unknown] fenofibrate micronized 200 mg capsule 200 mg PO QPM 05/23/21 [History Confirmed 06/03/21 Last Taken Unknown] lisinopril 40 mg tablet 40 mg PO QPM 05/23/21 [History Confirmed 06/03/21 Last Taken Unknown] metoprolol succinate 25 mg tablet,extended release 24 hr 25 mg PO BID 05/23/21 [History Confirmed 06/03/21 Last Taken Unknown] rosuvastatin 5 mg tablet 2.5 mg PO QAM 05/23/21 [History Confirmed 06/03/21 Last Taken Unknown] aspirin 81 mg tablet,delayed release (Aspirin Low Dose) 81 mg PO BID #30 tab 06/02/21 [Rx Last Taken Unknown] hydrocodone 10 mg-acetaminophen 325 mg tablet 1 - 2 tab PO Q4H PRN #60 tab 06/02/21 [Rx Last Taken Unknown] dexlansoprazole 60 mg capsule,biphase delayed release (Dexilant) 60 mg PO QDAY 06/03/21 [History Confirmed 06/03/21 Last Taken Unknown] vitamin B complex (B Complex-Vitamin B12) 1 tab PO QDAY 06/03/21 [History Confirmed 06/03/21 Last Taken Unknown] gabapentin 300 mg tablet 300 mg PO TID 06/04/21 [History Confirmed 06/04/21 Last Taken Unknown] COURSE Hospital Course Hospital course: Interval history: History of present illness: Ms. Hendrickson is a 86 year old F Patient fell onto left hip resulting in fracture. She has shingles left back area. She is on gabapentin. Patient states the medication has made her dizzy as time which caused her to fall today. [facility] was contacted for orthopedics. Patient denies chest pain shortness of breath did not hit her head. 06/03 Patient had ORIF last night. No overnight events. No new complaints. Postop anemia plus delusional. 06/04 No overnight events new complaints. Waiting placement. 06/05 No overnight events. Patient emotional this morning states she is upset with her for not coming by. 06/06 Transfer to snf facility today. A: *Left hip fracture: s/p ORIF (06/02) *recent Zoster infection to Left back (thoracic): recently started on gabapentin, increased cymbalta, lidoderm *h/o CAD w/stent: *HTN/HLD: *Crohn's: On azathioprine *Anxiety/depression: Discharge diagnosis: Left hip fracture recent herpes zoster infection Secondary discharge diagnosis: CAD hypertension Crohn's anxiety depression Time Spent with Patient Time attestation: Total time spent providing and/or coordinating discharge services: Time spent: Greater than 30 minutes EXAM Constitutional Vitals: Temp Pulse Resp BP Pulse Ox 97.8 F 87 16 138/77 96 06/05/21 07:06 06/05/21 04:00 06/05/21 07:35 06/05/21 07:06 06/05/21 07:06 Discharge Plan Patient/Caregiver Discharge Instructions Activity: ambulate only with your walker and as per physical therapy Diet: Regular Diet Prescriptions: New aspirin [Aspirin Low Dose] 81 mg Tablet,Delayed Release (Dr/Ec) 81 mg PO BID Qty: 30 0RF hydrocodone-acetaminophen 10-325 mg Tablet 1 - 2 tab PO Q4H PRN (Reason: Pain) Qty: 60 0RF Continued duloxetine 30 mg capsule,delayed release(DR/EC) 30 mg PO DAILY 0RF lisinopril 40 mg tablet 40 mg PO QPM 0RF Label Comments: take 1 tablet by mouth once daily metoprolol succinate 25 mg tablet extended release 24 hr 25 mg PO BID 0RF Label Comments: take 1 tablet by mouth twice a day (NEEDS TO BE SEEN) rosuvastatin 5 mg tablet 2.5 mg PO QAM 0RF fenofibrate micronized 200 mg capsule 200 mg PO QPM 0RF amlodipine 5 mg tablet 5 mg PO DAILY 0RF Label Comments: take 1 tablet by mouth once daily azathioprine 50 mg tablet 50 mg PO BID 0RF Label Comments: take 1 tablet by mouth twice a day after meals aspirin [Adult Low Dose Aspirin] 81 mg tablet,delayed release (DR/EC) 81 mg PO QDAY 0RF Dexilant 60 mg Capsule,Biphase Delayed Releas 60 mg PO QDAY 0RF vitamin B complex [B Complex-Vitamin B12] Tablet 1 tab PO QDAY 0RF gabapentin 300 mg Tablet 300 mg PO TID 0RF Other Ambulatory Orders: OT Discharge Order (Routine) Location: None Selected Ordered By: Rashaun Cohen Physical Therapy DC - General (Routine) Location: None Selected Ordered By: Rashaun Cohen Follow Up Plan Follow up with: Rashaun Cohen MD [Physician] - Hannah Oleary ARNP [Primary Care Provider] - Patient Disposition: Xfer SNF Prognosis: Good Rehab Potential: Good I certify that the patient requires SNF services: Yes Overall status at discharge: patient is progressing back to baseline Discharge Orders: Discharge Order (Routine); Ordered 06/04/21 Ordered By: Rashaun Cohen QUALITY VTE Deep Vein Thrombosis/Pulmonary Embolism Present on Admission: No
[2021-06-05] MEDS: ACETAMINOPHEN 325 MG TABLET PO PRN (17:23)
[2021-06-05] MEDS: METHOCARBAMOL 750 MG TABLET PO PRN (17:23)
[2021-06-05] MEDS: LISINOPRIL 20 MG TABLET PO SCH (21:43)
[2021-06-05] MEDS: SENNOSIDES 1 TABLET PO SCH (21:53)
[2021-06-05] MEDS: FENOFIBRATE 43 MG CAPSULE PO SCH (22:06)
[2021-06-06] MEDS: 0.9 % SODIUM CHLORIDE 10 ML SYRINGE IV SCH (05:09)
--- NOTE | 2021-06-06 07:18 | Orthopedic Progress Note ---
SUBJECTIVE Subjective Patient information: Note initiated : 06/06/21 at 7:13 am Service Date, if different from initiated Date: [] Patient: Katheryn Hendrickson 86 y/o F admitted on 06/02/21 for Fall, left femur pain. Chief Complaint: [s/p left hemiarthroplasty] Pertinent ROS: 10 point reviewed and is negative Constitutional Vitals: Vital Signs Temp Pulse Resp BP Pulse Ox 97.6 F 72 20 110/70 94 06/06/21 04:00 06/06/21 04:00 06/06/21 04:00 06/06/21 04:00 06/06/21 04:00 Period Temp Pulse Resp BP Sys/Rivera Pulse Ox Last 24 Hr 97.2 F-98.4 F 72-87 14- 110-140/62-83 94-96 Intake and Output 06/05/21 06/06/21 06/06/21 21:59 05:59 13:59 Intake Total 850 120 Output Total 252 1 1 Balance 598 119 -1 Weight 134 lb 7 oz Intake & Output: Intake & Output 06/05/21 06/06/21 06/06/21 21:59 05:59 13:59 Intake Total 850 120 Output Total 252 1 1 Balance 598 119 -1 Weight 134 lb 7 oz Intake: Oral 850 120 Output: Void Amount 250 # of times incontinent of urine 2 1 1 Other: Meal Dinner Percent of Meal Consumed 75% Feeding Ability Assist with Tray Set Up Urine Appearance Clear Clear Urine Color Straw Bright Yellow Bright Yellow Urine Odor Normal Normal # Voids 1 1 OBJ DATA Labs CBC & Chem 7: 06/03/21 06:48 06/03/21 06:47 Labs: Abnormal Lab Results 06/03/21 06/03/21 06/03/21 07:15 06:48 06:47 RBC 3.37 L Hgb 10.4 L Hct 32.9 L RDW 14.6 H Neut % (Auto) 88.2 H Lymph % (Auto) 3.5 L Lymph # (Auto) 0.35 L Absolute Neutrophils 8.82 H Carbon Dioxide 20 L Calcium 8.1 L Magnesium 2.6 H Alkaline Phosphatase 33 L Total Protein 5.1 L Albumin 2.8 L Triglycerides 156 H Urine RBC 23 H Urine Mucus Few A Meds: Medications Acetaminophen (Acetaminophen 325 Mg Tablet) 650 mg PO Q6HP PRN; Protocol PRN Reason: Per Pain Protocol/Fever > 101 Last Admin: 06/05/21 17:23 Dose: 650 mg Documented by: Hydrocodone Bitart/Acetaminophen (Hydrocodone/Apap 10/325mg Tablet) 0 tab PO Q4HP PRN; Protocol PRN Reason: Per Pain Protocol Last Admin: 06/04/21 07:54 Dose: 1 tab Documented by: Albuterol/Ipratropium (Ipratropium/Albuterol 3 Ml Ampul.Neb) 3 ml NEB Q4HP PRN PRN Reason: Shortness Of Breath Amlodipine Besylate (Amlodipine 5 Mg Tablet) 5 mg PO DAILY [facility] Last Admin: 06/05/21 08:40 Dose: 5 mg Documented by: Aspirin (Aspirin 81 Mg Tab.Chew) 81 mg PO BID [facility] Last Admin: 06/05/21 21:43 Dose: 81 mg Documented by: Atorvastatin Calcium (Atorvastatin 10 Mg Tablet) 5 mg PO DAILY [facility] Last Admin: 06/05/21 08:40 Dose: 5 mg Documented by: Azathioprine (Azathioprine 50 Mg Tablet) 50 mg PO BID [facility] Last Admin: 06/05/21 21:43 Dose: 50 mg Documented by: Bisacodyl (Bisacodyl 10 Mg Supp.Rect) 10 mg DC Q2-3DAYS PRN PRN Reason: Constipation Docusate Sodium (Docusate Sodium 100 Mg Capsule) 100 mg PO BID [facility] Last Admin: 06/05/21 21:53 Dose: Not Given Documented by: Duloxetine HCl (Duloxetine 30 Mg Capsule) 30 mg PO DAILY [facility] Last Admin: 06/05/21 08:40 Dose: 30 mg Documented by: Fenofibrate (Fenofibrate 43 Mg Capsule) 215 mg PO HS [facility] Last Admin: 06/05/21 22:06 Dose: 215 mg Documented by: Gabapentin (Gabapentin 300 Mg Capsule) 300 mg PO TID [facility] Last Admin: 06/05/21 21:43 Dose: 300 mg Documented by: Hydralazine HCl (Hydralazine 20 Mg/Ml Vial) 0 mg IV Q2HP PRN PRN Reason: Hypertension Potassium Chloride 40 meq/ (Dextrose) 520 mls @ 130 mls/hr IV UD PRN PRN Reason: Potassium < 3 Magnesium Sulfate (Magnesium Sulfate) 2 gm in 50 mls @ 50 mls/hr IV UD PRN PRN Reason: Magnesium </= 1.6 Lisinopril (Lisinopril 20 Mg Tablet) 40 mg PO [facility] Last Admin: 06/05/21 21:43 Dose: 40 mg Documented by: Magnesium Hydroxide (Magnesium Hydroxide 30 Ml Oral.Susp) 30 ml PO BIDP PRN PRN Reason: Constipation Methocarbamol (Methocarbamol 750 Mg Tablet) 750 mg PO Q6HP PRN PRN Reason: Muscle Spasm Last Admin: 06/05/21 17:23 Dose: 750 mg Documented by: Metoprolol Succinate (Metoprolol Succinate 25 Mg Tab.Xl.24h) 25 mg PO DAILY [facility] Last Admin: 06/05/21 08:40 Dose: 25 mg Documented by: Morphine Sulfate (Morphine 4 Mg/Ml Vial) 0 mg IV Q1HP PRN; Protocol PRN Reason: Per Pain Protocol Last Admin: 06/03/21 04:01 Dose: 4 mg Documented by: Ondansetron HCl (Ondansetron 4 Mg Odt Tablet) 4 mg SL Q4HP PRN; Protocol PRN Reason: Nausea And Vomiting Ondansetron HCl (Ondansetron 4 Mg/2 Ml Vial) 4 mg IV Q4HP PRN PRN Reason: Nausea And Vomiting Pantoprazole Sodium (Pantoprazole 40 Mg Tablet) 40 mg PO QAMAC [facility] Last Admin: 06/05/21 07:29 Dose: 40 mg Documented by: Polyethylene Glycol (Polyethylene Glycol 3350 17 Gm Packet) 17 gm PO DAILYP PRN PRN Reason: Constipation Potassium Chloride (Potassium Chloride 20 Meq Tablet) 40 meq PO UD PRN PRN Reason: Potssium is 3-3.5 Potassium Chloride (Potassium Chloride 20 Meq Tablet) 40 meq PO UD PRN PRN Reason: Potassium < 3 Senna (Sennosides 1 Tablet) 2 tab PO [facility] Last Admin: 06/05/21 21:53 Dose: Not Given Documented by: Sodium Biphosphate/Sodium Phosphate (Fleets Adult Enema) 1 dose DC Q3-4DAYS PRN PRN Reason: Constipation Sodium Chloride (0.9 % Sodium Chloride 10 Ml Syringe) 10 ml IV Q8 [facility] Last Admin: 06/06/21 05:09 Dose: Not Given Documented by: Throat Lozenges (Benzocaine/Menthol 1 Lozenge) 1 lozenge PO PRN PRN PRN Reason: Sore Throat A/P Narrative A/P Narrative: Patient seen and examined this am. resting comfortably but arousable, oriented, eager for discharge. has some tenderness to palpation but no complaints with current pain management. Dressing at [facility] has some strikethrough but otherwise intact. Will change prior to discharge. Both lower extremities are warm, well perfused and neuro intact. endorses occasional ambulation w/ walker PT assistance. Will continue WB as tolerated w/ walker/ PT asssistance. Stable from Orthopedic standpoint, will defer final dispo to attending hospitalist. Plan is for expected discharge to SNF for rehab in 1-2 days with follow up at [facility] in 10-14 days. Time Spent With Patient Time: Total time spent is greater than 50% in coordination of care (as documented) at patient's floor/unit and/or counseling patient:
[2021-06-06] MEDS: PANTOPRAZOLE 40 MG TABLET PO SCH (07:48)
[2021-06-06] MEDS: amLODIPine 5 MG TABLET PO SCH (09:02)
[2021-06-06] MEDS: DULoxetine 30 MG CAPSULE PO SCH (09:02)
[2021-06-06] MEDS: METOPROLOL SUCCINATE 25 MG TAB.XL.24H PO SCH (09:02)
[2021-06-06] MEDS: azaTHIOprine 50 MG TABLET PO SCH (09:02)
[2021-06-06] MEDS: GABAPENTIN 300 MG CAPSULE PO SCH (09:02)
[2021-06-06] MEDS: ATORVASTATIN 10 MG TABLET PO SCH (09:02)
[2021-06-06] MEDS: ASPIRIN 81 MG TAB.CHEW PO SCH (09:02)
[2021-06-06] MEDS: DOCUSATE SODIUM 100 MG CAPSULE PO SCH (09:02)
== END 2021-06-06 13:35 | DRG 522 ==
LOC: ED 09:43 → SUR 19:04 → MEDSUR 22:15
PROVIDERS: ADMIT Internal Medicine; ATTEND Internal Medicine